=== PATIENT | male | born 1970 | race Caucasian/White ===

== ENCOUNTER 2021-07-30 08:12 | Inpatient (IN) ==
--- NOTE | 2021-05-05 16:45 | Anesthesiology Consultation ---
Date of Service May 05, 2021 Assessment & Plan (1) Encounter for pre-operative examination: - check BSG am DOS. - cardiology office visit and pre-op evaluation 03/18/2021: "...6 month cardiac visit...states he feels good...is to be going for a back surgery but needs cardiac clearance and PCP clearance prior to surgery...refractory HTN and CAD...stenting to Cx...April 2019. Has a totally occluded RCA and moderate distal LAD disease also. He was, for the sake of the chart and reviewers, offered CABG to allow complete revasc but he refused...Most recent stent to circumflex July 2020...BP now most of the time in the 130-140/70's...CAD: finished his series of stents (one in 2019, one in May 2020 and one July 2020) in patient who refused CABG...we will continue the asa/brillinta up to time or [sic] OR and resume once safe after LR...He has not had angina or CHF and ECG is normal...had 6 months of uninterrupted DAPT and wishes to proceed with back surgery. At this point in time the risk is low of stopping the DAPT for surgery and he is willing to accept that risk and proceed with back surgery as an intermediate risk...will need follow up with Dr. Mason in [facility] for ongoing assessment of multivessel stenting and evaluation of non stented side branches..." Case discussed with Dr. Jung who advised nothing further needed prior to surgery regarding patient's cardiac history. Optimization note for medical pre-op evaluation completed as below. - medical pre-op evaluation and clearance needed regarding anemia (H&H 10/25), updated EKG and A1c. Awaiting PCP pre-op evaluation and clearance. - COVID screening: Per electrical design engineer on 05/03/2021: Travel screen negative, no known COVID-19 positive contacts or current COVID-19 related symptoms in past 2 weeks. Patient vaccinated. Surgeon arranging preop COVID testing, scheduled 05/18/2021. Awaiting results. Chart Review Chart Review: Pending: Refer to Additional Notes / Consult section and Patient NOT seen in Pre Admission Testing History Surgery Operation Date: 05/20/21 07:45 Proposed Procedures p L3-L5 Decompression Fusion Spinal Cord Monitoring - Yamil Hull DO Height/Weight Height: 6 ft 2 in Weight: 132.903 kg Allergies Allergy/AdvReac Type Severity Reaction Status Date / Time pneumococcal vaccine Allergy Mild FLU-LIKE Verified 05/03/21 08:25 SYMPTOMS Medications Home Medications Medication Instructions Recorded Confirmed Last Taken aspirin 81 mg tablet,delayed 81 mg PO QAM 05/04/20 05/03/21 Unknown release atorvastatin 40 mg tablet 40 mg PO QAM 05/04/20 05/03/21 Unknown bisoprolol 10 1 tab PO QAM 05/04/20 05/03/21 Unknown mg-hydrochlorothiazide 6.25 mg tablet clonidine HCl 0.1 mg tablet 0.1 mg PO UD 05/04/20 05/03/21 Unknown cyanocobalamin (vitamin B-12) 1,000 mcg PO BID 05/04/20 05/03/21 Unknown 1,000 mcg tablet glimepiride 4 mg tablet 4 mg PO BID 05/04/20 05/03/21 Unknown hydralazine 25 mg tablet 25 mg PO BID 05/04/20 05/03/21 Unknown lisinopril 40 mg tablet 40 mg PO QAM 05/04/20 05/03/21 Unknown lorazepam 0.5 mg tablet 0.5 mg PO HS PRN 05/04/20 05/03/21 Unknown metformin 1,000 mg tablet 1,000 mg PO BID 05/04/20 05/03/21 Unknown minoxidil 2.5 mg tablet 5 mg PO BID 05/04/20 05/03/21 Unknown pantoprazole 40 mg tablet,delayed 40 mg PO QAM 05/04/20 05/03/21 Unknown release spironolactone 25 mg tablet 25 mg PO QAM 05/04/20 05/03/21 Unknown tramadol 50 mg tablet 50 mg PO Q4 PRN 05/04/20 05/03/21 Unknown dapagliflozin 10 mg tablet 10 mg PO QAM 05/03/21 05/03/21 Unknown (Farxi) insulin lispro protamine-lispro 1 unit SUBCUT UD 05/03/21 05/03/21 Unknown 100 unit/mL (75-25) subcutaneous pen (Humalog Mix 75-25 KwikPen) multivitamin 1 tab PO QAM 05/03/21 05/03/21 Unknown ticagrelor 90 mg tablet (Brilinta) 90 mg PO BID 05/03/21 05/03/21 Unknown Past Medical History Medical History Degenerative disc disease Diabetes mellitus, type 2 NIDDM GERD (gastroesophageal reflux disease) History of COVID-19 04/2020>NO SYMPTOMS (TESTED BEFORE 1ST HEART CATH) History of skin cancer REMOVED FROM EYELID Hx of cardiac murmur A CHILD Hyperlipidemia Hypertension Insomnia Obesity Osteoarthritis 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 HERNANDEZ/[facility] History of tooth extraction History of trigger finger bilat thumbs with release Hx of vasectomy Social History Smoking Status: Former smoker tobacco type: cigarettes and smokeless tobacco Smoking cigarettes per day: 30 YEARS AGO Do You Dip or Chew Tobacco: No (QUIT 15 YEARS AGO) Hx Alcohol Use: Yes Alcohol type: beer alcohol intake frequency: holidays/special occasions only substance use type: does not use Lab Results Anesthesia Preop Results Results Anesthesia Widget: WBC 9.17 K/uL (4.8-10.8) 04/13/21 Hgb 8.0 g/dL (14.0-18.0) L 04/13/21 Hct 29.3 % (42-52) L 04/13/21 Plt 377 K/uL (130-400) 04/13/21 Na 136 mmol/L (136-145) 04/13/21 K 4.0 mmol/L (3.5-5.1) 04/13/21 Cl 102 mmol/L (98-107) 04/13/21 CO2 24 mmol/L (21-32) 04/13/21 BUN 22 mg/dl (6-23) 04/13/21 Creat 1.15 mg/dl (0.6-1.4) 04/13/21 Glucose Level 209 mg/dl (70-99(Fasting)) H 04/13/21 PT 10.6 Seconds (9.0-12.0) 04/13/21 PTT 26.7 Seconds (21.0-31.0) 04/13/21 INR 1.0 (0.9-1.1) 04/13/21 Urine Color Yellow 04/13/21 Urine Appearance Clear (Clear) 04/13/21 Urine pH 5.5 (4.5-7.5) 04/13/21 Urine Specific [place] 1.020 (1.000-1.030) 04/13/21 Urine Protein Negative (Negative) 04/13/21 Urine Glucose (UA) 3+ (Negative) H 04/13/21 Urine Ketones Negative (Negative) 04/13/21 Urine Blood Negative (Negative) 04/13/21 Urine Nitrite Negative (Negative) 04/13/21 Urine Bilirubin Negative (Negative) 04/13/21 Urine Urobilinogen Negative (Negative) 04/13/21 Urine Leukocyte Esterase Negative (Negative) 04/13/21 Testing Chest X-Ray Date: 04/13/21 FINDINGS: No lines and tubes are seen. The cardiomediastinal silhouette is normal. The lungs are clear. No evidence of pleural effusion or pneumothorax. IMPRESSION: No acute chest disease. Stress Test Date: 05/05/20 Type: nuclear Based upon the nuclear imaging findings there is inferior wall ischemia. EF 50%. Subsequent cath completed 05/28/2020. Cardiac Catheterization Date: 05/28/20 LM: mild distal disease 15% LAD: proximal 30-40% disease, more distal LAD lesions of 50-60% and 50% Cx: proximal 40% disease, 40-50% disease at take-off of OM1, 90% disease proximal OM, 40% disease inferior branch, 70% disease distal RCA: Known to be 100% occluded, some filling of the RCA system from left to right collaterals Assessment: Multivessel CAD Successful DATA INTEGRITY CONSULTANT/stenting of the OM1 with a ROSAURA, stenosis reduced from 90% to 0% Plan: Maximize medical therapy for secondary prevention Dual antiplatelet therapy for goal of 1 year (or at least 6 mos if urgent surgery)
--- NOTE | 2021-07-16 14:46 | Communication Note ---
Date of Service: July 16, 2021 The patient was noted to have a positive [place] PCR COVID test on 07/15/2021. The patient expressed frustration over his surgery cancellation due to COVID-p ositive status. I was able to review his medical record and found that he has a history significant for coronary artery disease and a history of CABG x3 in April 2020, diabetes, hypertension, hyperlipidemia, obesity, and CVA. He expressed frustration over multiple cancellations in the past. The records were pulled which noted that he was canceled initially for cardiac cath. He was canceled the second time because he required CABG x3, he was canceled a third time due to iron deficiency anemia and need for hematology work-up, and he was canceled today due to COVID-positive status. This case was discussed with Dr. Hull and 2 other anesthesiologist as well as infection control. He is having elective L3-5 lumbar decompression and fusion rather than emergent. No neurosurgical red flags were able to be gleaned from the chart nor per nursing telephone interview. At this time I feel that his risks of acute COVID infection with thrombotic state coupled with his comorbidities outweigh the potential benefit of continuing with elective lumbar decompression and fusion. Dr. Hull in agreement. Subsequently, the patient will be canceled but may return to the OR schedule the week of July 27. Patient has been updated as well as Dr. Hull's office with this information.
[~2021-07-30 08:12] MED LIST: ACETAMINOPHEN 500 MG TAB PO SCH; CeleBREX 200 MG CAP PO SCH; GABAPENTIN 900 MG DOSE PO SCH; LR 15ML/HR IV SCH
[2021-07-30] MEDS ORDERED: ROCURONIUM BROMIDE 10 MG/ML 5 ML VIAL IV ONE ×6 (09:25→11:29)
[2021-07-30] MEDS ORDERED: DEXAMETHASONE SOD INJ 4 MG/ML VIAL ONE (09:25)
[2021-07-30] MEDS ORDERED: PROPOFOL IV EMULSION 10 MG/ML 20 ML VIAL IV ONE (09:25)
[2021-07-30] MEDS ORDERED: LIDOCAINE 2% 2 ML VIAL/AMP(20MG/ML) INFIL ONE (09:25)
[2021-07-30] MEDS ORDERED: fentaNYL citrate 100 MCG/2 ML VIAL ONE (09:26)
[2021-07-30] MEDS ORDERED: MIDAZOLAM HCL 1 MG/ML 2ML VIAL ONE (09:26)
[2021-07-30 09:28] LABS: BUN Creatinine Ratio 17.6 (10-20); Calcium 9.8 mg/dl (8.5-10.1); Creatinine Clr Calc Pharmacy 130.9 ml/min; Est GFR (African American) 111.1 ml/min; Est GFR (Non-African American) 95.9 ml/min; Potassium 4.1 mmol/L (3.5-5.1)
[2021-07-30] MEDS ORDERED: ONDANSETRON INJ 2 MG/ML 2 ML VIAL IV PRN ×2 (09:31→16:58)
[2021-07-30] MEDS ORDERED: HYDROmorphone INJ 1 MG/ML SYRINGE IV PRN ×2 (09:31→16:58)
[2021-07-30] MEDS ORDERED: ATROPINE SULFATE 0.1 MG/ML 10ML SYR IV PRN (09:31)
[2021-07-30] MEDS ORDERED: ePHEDrine sulfate 50 MG/ML AMP IV PRN (09:31)
--- NOTE | 2021-07-30 09:41 | History & Physical Bridge Note ---
Date of Service July 30, 2021 History & Physical Bridge Note I have examined the patient, reviewed the History & Physical and in the interval since the performance of the History & Physical I have noted the following changes of clinical significance: no changes noted
--- NOTE | 2021-07-30 09:42 | History & Physical Report ---
Date of Service July 30, 2021 Assessment & Plan (1) Neurogenic claudication due to lumbar spinal stenosis: Plan: L3 L5 decompression and fusion History of Present Illness Chief Complaint: Back and leg pain Primary Care Provider: Dona Mendez MD This 51-year-old male presents with chronic persistent back and leg pain. Failing course of nonoperative care is here for surgical invention. Allergies Allergy/AdvReac Type Severity Reaction Status Date / Time pneumococcal vaccine Allergy Mild FLU-LIKE Verified 07/30/21 08:38 SYMPTOMS Home Medications Medication Instructions Recorded Confirmed Type aspirin 81 mg tablet,delayed 81 mg PO QAM 05/04/20 07/30/21 History release atorvastatin 40 mg tablet 40 mg PO QAM 05/04/20 07/30/21 History bisoprolol 10 1 tab PO QAM 05/04/20 07/30/21 History mg-hydrochlorothiazide 6.25 mg tablet clonidine HCl 0.1 mg tablet 0.1 mg PO UD 05/04/20 07/30/21 History cyanocobalamin (vitamin B-12) 1,000 mcg PO BID 05/04/20 07/30/21 History 1,000 mcg tablet glimepiride 4 mg tablet 4 mg PO BID 05/04/20 07/30/21 History hydralazine 25 mg tablet 25 mg PO BID 05/04/20 07/30/21 History lisinopril 40 mg tablet 40 mg PO QAM 05/04/20 07/30/21 History lorazepam 0.5 mg tablet 0.5 mg PO HS PRN 05/04/20 07/30/21 History metformin 1,000 mg tablet 1,000 mg PO BID 05/04/20 07/30/21 History minoxidil 2.5 mg tablet 5 mg PO BID 05/04/20 07/30/21 History pantoprazole 40 mg tablet,delayed 40 mg PO QAM 05/04/20 07/30/21 History release spironolactone 25 mg tablet 25 mg PO QAM 05/04/20 07/30/21 History tramadol 50 mg tablet 50 mg PO Q4 PRN 05/04/20 07/30/21 History dapagliflozin 10 mg tablet 10 mg PO QAM 05/03/21 07/30/21 History (Farxiga) insulin lispro protamine-lispro 1 unit SUBCUT UD 05/03/21 07/30/21 History 100 unit/mL (75-25) subcutaneous pen (Humalog Mix 75-25 KwikPen) multivitamin 1 tab PO QAM 05/03/21 07/30/21 History ticagrelor 90 mg tablet (Brilinta) 90 mg PO BID 05/03/21 07/30/21 History ferrous sulfate 325 mg (65 mg 325 mg PO QAM 07/14/21 07/30/21 History iron) tablet (Iron (ferrous sulfate)) Past Med/Surg History Medical History (Updated 07/30/21 @ 09:42 by Yamil Hull DO) Coronary artery disease total occlusion RCA, residual multivessel CAD, pt refused CABG. 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 total occlusion RCA-offered CABG and pt refused. FOLLOWED DR. HERNANDEZ/[facility], Dr. Mason [facility] History of tooth extraction History of trigger finger bilat thumbs with release Hx of vasectomy Family History Other No family history of adverse response to anesthesia Social History Smoking Status: Never smoker Cigarettes Per Day: 30 YEARS AGO; Second Hand Exposure: No; Do You Dip or Chew Tobacco: No; Tobacco Cessation Education Requested by Patient: No Hx Alcohol Use: Yes Alcohol type: beer Hx Substance Use: No Preferred Language: American Communication Ability: Effective Cabinet And Trim Installer Required: No Beliefs That Will Affect Care: None Current Living Situation: Spouse Other Information That Helps Us Care for You: No Feels Safe at Home: Yes Safety Concerns: Feels Safe At This Time Assistive Devices: Denture - Upper and Denture - Lower Assistive Devices Comment: READING GLASSES Physical Exam Physical Exam: Patient is alert and oriented Heart regular rhythm Lungs clear Results & Data Results & Data ([facility]) Vital Signs (Past 12 Hours) Vital Signs Temp Pulse Resp BP Pulse Ox 07/30/21 08:43 36.8 C 74 18 174/93 H 96
[2021-07-30] MEDS ORDERED: ceFAZolin 330 MG/ML 1 GM VIAL ONE (09:58)
[2021-07-30] MEDS ORDERED: BUPIVACAINE/EPINEPHRINE 0.25% 1:200,000 30 ML VIAL ONE (09:59)
[2021-07-30] MEDS ORDERED: FLOSEAL HEMOSTATIC MATRIX 10ML TOP ONE ×2 (11:14)
[2021-07-30] MEDS ORDERED: PHENYLEPHRINE 100MCG/ML 5ML SYR ONE (11:30)
[2021-07-30] MEDS ORDERED: ONDANSETRON INJ 2 MG/ML 2 ML VIAL ONE (11:30)
--- NOTE | 2021-07-30 13:10 | Operative Report ---
Post Operative Report Pre & Post Diagnosis Operation Date: 05/20/21 07:45 <No data on this case meets the specified criteria> Operation Date: 07/30/21 11:05 Pre-Op Diagnosis: Lumbar disc herniation with spinal stenosis and neurogenic claudication Post-Op Diagnosis: Same I identified the patient and participated in the time-out.: Yes Procedure Operation Date: 05/20/21 07:45 <No data on this case meets the specified criteria> Operation Date: 07/30/21 11:05 Actual Procedures #1 lumbar decompression with bilateral medial facetectomies and foraminotomies L2-L3, L3-L4 and L4-L5. #2 posterior spinal fusion L3-L4 L4-L5. #3 placement posterior instrumentation L3-L4 L4-L5. #4 interbody fusion L3-L4 and L4-L5. #5 placement of Spira 15 x 26 mm cage at L3-L4 and L4-5. #6 placement locally harvested morselized autograft in the posterior lateral gutters. #7 placement of I factor bone with V toss in the interbody space and posterior lateral gutters. Surgeon Yamil Hull, DO Senior Hr Business Partner Jean Paul Brown Estimated Blood Loss 800 Findings See Below The patient is 6 foot 2 inches tall weighing over 123 kg with a BMI in excess of 34. Patient's body habitus combined with an EBL of greater than 600 cc created significant technical difficulty adding at least 50% increased operative time. Specimens None Indications This is a 51-year-old male who presents above-mentioned diagnosis after failed extensive course of nonoperative care is here for surgical invention. Description of Procedure Patient was met with identified informed consent obtained. Patient was then taken to the operative suite underwent a patient placed in a prone position on the Mukesh table atop the Maxi frame. All bony prominences well-padded eyes inspected to ensure no external pressure placed upon them. This point the lumbar spine was prepped and draped in normal sterile fashion. Sharp dissection with the assistance of Bovie cautery was performed down to and exposing the lamina and transverse processes of L3-L4-L5 bilaterally. From caudal to cephalad fashion complete laminectomy of L for L3 and partial laminectomy of L2 was performed including bilateral medial facetectomies and foraminotomies addressing severe spinal stenosis. Pedicle screws were then placed at L3 L4-5 bilaterally with assistance of fluoroscopy and the pelvis is santino placed. By way of a transforaminal portion radically discectomy of L4-L5 was performed endplates curetted to subcortically bone and a 15 x 26 mm spiral cage filled with I factor tapped in position. Then proceeded L3-L4 and again by way of a transfemoral approach and right complete discectomy performed endplates. To subcortically bone and a again a 15 x 26 mm spiral cage with I factor tapped in position. The rods were then compressed locked in final position bilaterally. The transverse processes of L3-L4-L5 burred to subcortical bleeding bone. I factor model V toss and locally harvested morselized autograft was placed in the posterior gutters. 15 round AIDEE drain inserted. The incision was then closed with 1 Vicryl in the fascia 2-0 Vicryl subcutaneously and 4 Monocryl for final skin closure. Steri-Strip sterile dressings placed. Patient waken taken PACU stable condition. Please note spinal cord monitoring was utilized at the procedure no changes noted. Lastly Jean Paul Brown was present at the entire surgery and while the patient positioning complex portions of the surgery and fascial closure. I attest to the content of the Intraoperative Record and any orders documented therein. Any exceptions are noted below.
--- NOTE | 2021-07-30 13:29 | Fluoroscopy Report ---
FL lumbar spine 2-3V CLINICAL HISTORY: L3-5 decompression and fusion COMPARISON STUDY: None. FLUOROSCOPY TIME: 24 seconds. FINDINGS: 2 fluoroscopic spot images of the lumbar spine demonstrate posterior decompression and fusi on from L3 through L5 with pedicle screws and rods. The hardware appears intact. Disc spaces are good position. IMPRESSION: Fluoroscopic assistance provided for L3-L5 posterior decompression and fusion ACT 112: Negative or not required by law. Electronically signed by: Enrrique Winslow M.D. 07/30/2021 1:28 PM
[2021-07-30] MEDS ORDERED: INSULIN ASPART PER UNIT ONE (13:51)
[2021-07-30] MEDS: fentaNYL citrate 100 MCG/2 ML VIAL IV PRN ×3 (14:02→14:33)
[2021-07-30] MEDS ORDERED: INSULIN HUMAN REGULAR PER UNIT 5 UNITS in SYRINGE 0 ML IV STA (14:04)
[2021-07-30] MEDS ORDERED: NovoLIN-R INSULIN PER UNIT CHARGE ONE (14:06)
--- NOTE | 2021-07-30 15:52 | Anesthesiology Progress Note ---
Date of Service July 30, 2021 Anesthesia Post Procedure Vital Signs Vital Signs: Temp Pulse Pulse Resp BP Pulse Ox 07/30/21 15:15 73 12 138/67 93 07/30/21 15:05 70 16 127/79 94 07/30/21 14:55 67 13 132/70 93 07/30/21 14:45 64 19 130/74 93 07/30/21 14:35 68 10 L 135/76 93 07/30/21 14:25 70 15 129/76 92 07/30/21 14:15 63 14 134/68 95 07/30/21 14:05 61 13 112/66 92 07/30/21 13:55 68 17 115/70 96 07/30/21 13:45 65 15 112/51 L 92 07/30/21 13:37 97.2 F L 66 18 107/54 L 94 07/30/21 08:43 98.2 F 74 18 174/93 H 96 Pain Intensity Back: Pain Intensity: 4 Transfer of Care Handoff Completed per policy Notes Mental Status: alert / awake / arousable and participated in evaluation Patient Amnestic to Procedure: Yes Nausea / Vomiting: adequately controlled Pain: adequately controlled Airway Patency, RR, SpO2: stable & adequate BP & HR: stable & adequate Hydration State: stable & adequate Anesthetic Complications: no major complications apparent and Pt Satisfied with anesthetic care
[2021-07-30] MEDS ORDERED: NALOXONE HCL 0.4 MG/1 ML VIAL/CARP IV PRN (16:58)
[2021-07-30] MEDS ORDERED: traMADol HCL 50 MG TABLET PO PRN (16:58)
[2021-07-30] MEDS ORDERED: MAGNESIUM HYDROXIDE SUSP 30 ML UDC PO PRN (16:58)
[2021-07-30] MEDS ORDERED: METOCLOPRAMIDE HCL INJ 5 MG/ML 2 ML VIAL IV PRN (16:58)
[2021-07-30] MEDS ORDERED: diphenhydrAMINE Capsule 25 MG CAP PO PRN (16:58)
[2021-07-30] MEDS ORDERED: ONDANSETRON 4 MG OD TAB PO PRN (16:58)
[2021-07-30] MEDS ORDERED: DO NOT ADMINISTER FLU VACCINE PRN (16:58)
[2021-07-30] MEDS ORDERED: bisacodyL 10 MG SUPP PR PRN (16:58)
[2021-07-30] MEDS ORDERED: PHARMACY GLYCEMIC MGMT CONSULT PRN (16:58)
[2021-07-30] MEDS ORDERED: ALUMINUM/MAGNESIUM SUSP 30 ML UDC PO PRN (16:58)
[2021-07-30] MEDS ORDERED: HYDROmorphone INJ 0.5 MG/0.5 ML SYR IV PRN (16:58)
[2021-07-30] MEDS ORDERED: LORazepam 0.5 MG TAB PO PRN (16:58)
[2021-07-30] MEDS ORDERED: FAMOTIDINE 20 MG TAB PO PRN (16:58)
[2021-07-30] MEDS ORDERED: DO NOT ADMINISTER PNEUMOCOCCAL VACCINE PRN (16:58)
[2021-07-30] MEDS ORDERED: SOD PHOSPHATE/SOD BIPHOSPHATE ENEMA 132 ML BTL PR PRN (16:58)
[2021-07-30] MEDS ORDERED: ACETAMINOPHEN 1,000 MG/100 ML VIAL IV PRN (16:58)
[2021-07-30] MEDS ORDERED: LORazepam 2 MG/1 ML VIAL IV PRN (16:58)
[2021-07-30] MEDS ORDERED: PROMETHAZINE HCL 12.5 MG in SODIUM CHLORIDE 0.9% 50 ML IV PRN (16:58)
[2021-07-30] MEDS ORDERED: hydrOXYzine HCl 25 MG TAB PO PRN (16:58)
[2021-07-30] MEDS: SODIUM CHLORIDE 0.9% 1000ML 1,000 ML IV SCH (17:58)
[2021-07-30] MEDS: INSULIN ASPART PER UNIT SC SCH ×2 (18:19→20:42)
--- NOTE | 2021-07-30 20:21 | Hospitalist Consultation ---
Date of Consultation July 30, 2021 Assessment & Plan (1) Neurogenic claudication due to lumbar spinal stenosis: S/p Lumbar decompression and fusion surgery L2-5 today Pain control per Primary Surgical team EBL 800cc Per outpatient records, Hb was 12.7 on 06/09/21 Check CBC and BMP tomorrow (2) CAD (coronary artery disease): (3) History of heart artery stent: S/p stent in May and July 2020 Continue ASA and brilinta Continue atorvastatin Patient to follow up cardiology outpatient (4) Hypertension: Continue home medications Monitor BP (5) Obesity: Lifestyle modification education provided Weight loss (6) Diabetes mellitus, type 2: A1c on 07/06/21 per outpatient records was 6.7 Get pharm for glycemic control considering patient is on IV decadron ISS Patient reports he has follow up with [facility] for DM management outpatient Thank you for the consult. [facility] We will continue to follow patient while inpatient History of Present Illness Reason for Consultation: Post op medical management Requesting Physician: Dr Hull Attending Physician: Yamil Hull, DO History of Present Illness 51-year-old man with history of hypertension, diabetes mellitus type 2, obesity, and deficiency anemia, CAD status post stent in 2020 who had Lumbar decompression and fusion surgery by Dr. Hull today. Patient reported fall and winter 2020 after which she started having chronic persistent low back pain. Reports pain radiates to the right leg. Has been ambulating with a cane. Failed conservative management. Reported that he had a cardiac stress as part of preop work-up and was noted to have CAD and required stents in May and July 2020 at [facility]. Patient seen postop. Reports pain control at this time. Denies any other symptoms at this time. Patient denies smoking or illicit drug use. Drinks alcohol occasionally. Allergies Allergy/AdvReac Type Severity Reaction Status Date / Time pneumococcal vaccine Allergy Mild FLU-LIKE Verified 07/30/21 08:38 SYMPTOMS Home Medications Medication Instructions Recorded Confirmed Type aspirin 81 mg tablet,delayed 81 mg PO QAM 05/04/20 07/30/21 History release atorvastatin 40 mg tablet 40 mg PO QAM 05/04/20 07/30/21 History bisoprolol 10 1 tab PO QAM 05/04/20 07/30/21 History mg-hydrochlorothiazide 6.25 mg tablet clonidine HCl 0.1 mg tablet 0.1 mg PO UD 05/04/20 07/30/21 History cyanocobalamin (vitamin B-12) 1,000 mcg PO BID 05/04/20 07/30/21 History 1,000 mcg tablet glimepiride 4 mg tablet 4 mg PO BID 05/04/20 07/30/21 History hydralazine 25 mg tablet 25 mg PO BID 05/04/20 07/30/21 History lisinopril 40 mg tablet 40 mg PO QAM 05/04/20 07/30/21 History lorazepam 0.5 mg tablet 0.5 mg PO HS PRN 05/04/20 07/30/21 History metformin 1,000 mg tablet 1,000 mg PO BID 05/04/20 07/30/21 History minoxidil 2.5 mg tablet 5 mg PO BID 05/04/20 07/30/21 History pantoprazole 40 mg tablet,delayed 40 mg PO QAM 05/04/20 07/30/21 History release spironolactone 25 mg tablet 25 mg PO QAM 05/04/20 07/30/21 History tramadol 50 mg tablet 50 mg PO Q4 PRN 05/04/20 07/30/21 History dapagliflozin 10 mg tablet 10 mg PO QAM 05/03/21 07/30/21 History (Farxiga) insulin lispro protamine-lispro 1 unit SUBCUT UD 05/03/21 07/30/21 History 100 unit/mL (75-25) subcutaneous pen (Humalog Mix 75-25 KwikPen) multivitamin 1 tab PO QAM 05/03/21 07/30/21 History ticagrelor 90 mg tablet (Brilinta) 90 mg PO BID 05/03/21 07/30/21 History ferrous sulfate 325 mg (65 mg 325 mg PO QAM 07/14/21 07/30/21 History iron) tablet (Iron (ferrous sulfate)) Patient History Medical History (Updated 07/30/21 @ 20:14 by Barbara Irving MD) Coronary artery disease total occlusion RCA, residual multivessel CAD, pt refused CABG. 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 total occlusion RCA-offered CABG and pt refused. FOLLOWED DR. HERNANDEZ/[facility], Dr. Mason [facility] History of tooth extraction History of trigger finger bilat thumbs with release Hx of vasectomy Family History Other No family history of adverse response to anesthesia Social History Smoking Status: Never smoker Cigarettes Per Day: 30 YEARS AGO; Second Hand Exposure: No; Do You Dip or Chew Tobacco: No; Tobacco Cessation Education Requested by Patient: No Hx Alcohol Use: Yes Alcohol type: beer Hx Substance Use: No Preferred Language: Yi Communication Ability: Effective Belt Splicer Required: No Beliefs That Will Affect Care: None Current Living Situation: Spouse Other Information That Helps Us Care for You: No Feels Safe at Home: Yes Safety Concerns: Feels Safe At This Time Assistive Devices: Denture - Upper and Denture - Lower Assistive Devices Comment: READING GLASSES Review of Systems Constitutional: no fever, no chills and no fatigue Eyes: no problem reported Ear, Nose, Mouth, Throat: no problem reported Respiratory: no cough, no dyspnea and no dyspnea on exertion Cardiovascular: no chest pain, no dyspnea, no palpitations and no lightheadedness Gastrointestinal: no abdominal pain, no nausea, no vomiting and no diarrhea/loose stools Genitourinary: no dysuria, no difficulty urinating or no urinary frequency Musculoskeletal: + back pain Neurologic: no localized weakness and no headache(s) Psychiatric: no depression and no anxiety Physical Exam Constitutional: + well hydrated and + obese; no acute distress Eyes: PERRL, conjunctivae normal, anicteric sclerae ENMT: external ear and nose normal, oropharynx normal Respiratory: normal respiratory effort, lungs clear to auscultation Cardiovascular: Rate/Rhythm: regular rate and regular rhythm S1-S2 Gastrointestinal (Abdomen): normal bowel sounds, soft, nontender, no hepatosplenomegaly Musculoskeletal: No pedal edema Neurologic: PERRL, EOMI, accommodation nl, no face palsy, no dysarthria Psychiatric: A+Ox3, euthymic affect Genitourinary: Malloy in situ Results & Data Results & Data ([facility]) Vital Signs (Past 12 Hours) Vital Signs Temp Pulse Pulse Resp BP Pulse Ox 07/30/21 19:15 36.8 C 80 18 151/85 H 90 07/30/21 17:13 37 C 79 18 140/72 93 07/30/21 16:30 36.3 C L 81 16 141/66 H 96 07/30/21 16:15 82 18 128/66 92 07/30/21 16:00 76 16 144/89 H 97 07/30/21 15:45 74 16 131/76 94 07/30/21 15:30 78 19 145/72 H 96 07/30/21 15:15 36.6 C 73 12 138/67 93 07/30/21 15:05 70 16 127/79 94 07/30/21 14:55 67 13 132/70 93 07/30/21 14:45 64 19 130/74 93 07/30/21 14:35 68 10 L 135/76 93 07/30/21 14:25 70 15 129/76 92 07/30/21 14:15 63 14 134/68 95 07/30/21 14:05 61 13 112/66 92 07/30/21 13:55 68 17 115/70 96 07/30/21 13:45 65 15 112/51 L 92 07/30/21 13:37 36.2 C L 66 18 107/54 L 94 07/30/21 08:43 36.8 C 74 18 174/93 H 96 Laboratory Results Abnormal lab results 07/30/21 07/30/21 07/30/21 Range/Units 08:43 08:43 08:54 Glucose 201 H (70-99(Fasting)) mg/dl POC Glucose 190 H (70-99) mg/dl Crossmatch See Detail 07/30/21 07/30/21 07/30/21 Range/Units 13:44 14:56 17:32 Glucose (70-99(Fasting)) mg/dl POC Glucose 311 H* 315 H* 265 H (70-99) mg/dl Crossmatch
[2021-07-30] MEDS: ceFAZolin 2000MG 2,000 MG/15 ML SYR IV SCH (20:34)
[2021-07-30] MEDS: DOCUSATE SODIUM/SENNA 50/8.6MG TAB PO SCH (20:34)
[2021-07-30] MEDS: hydrALAZINE HCL 25 MG TAB PO SCH (20:35)
[2021-07-30] MEDS: minoxidiL 2.5 MG TAB PO SCH (20:35)
[2021-07-30] MEDS: CYANOCOBALAMIN (B-12) 500 MCG TABLET PO SCH (20:36)
[2021-07-30] MEDS: TICAGRELOR 90 MG TAB PO SCH (20:36)
[2021-07-30] MEDS: cloNIDine HCL 0.1 MG TAB PO SCH (20:37)
[2021-07-30] MEDS ORDERED: GLIMEPIRIDE 2 MG TAB PO SCH (21:00)
[2021-07-30] MEDS ORDERED: INSULIN GLARGINE SOLOSTAR 100 UNITS/ML 3 ML PEN SC ONE (21:30)
[2021-07-31] MEDS: INSULIN ASPART PER UNIT SC SCH ×6 (00:30→21:14)
[2021-07-31] MEDS: ACETAMINOPHEN 500 MG TAB PO PRN ×2 (00:31→06:07)
[2021-07-31] MEDS: SODIUM CHLORIDE 0.9% 1000ML 1,000 ML IV SCH (00:34)
[2021-07-31] MEDS: ceFAZolin 2000MG 2,000 MG/15 ML SYR IV SCH (04:39)
[2021-07-31] MEDS: POLYETHYLENE (MIRALAX) 17 GM PACK PO SCH ×4 (04:40→23:54)
[2021-07-31 06:20] LABS: Basophils # (auto) 0.02 K/uL (0-0.2); Basophils % (auto) 0.2 %; Eosinophils # (auto) 0.06 K/uL (0-0.5); Eosinophils % (auto) 0.6 %; Hematocrit (blood only) 31.2 % (42-52); Hemoglobin 10.5 g/dL (14.0-18.0); Immature Granulocytes # (auto) 0.04 K/uL (0.00-0.02); Immature Granulocytes % (auto) 0.4 %; Lymphocytes # (auto) 1.01 K/uL (1.2-3.4); Lymphocytes % (auto) 9.4 %; Mean Corpuscular Hemoglobin 28.5 pg (25-34); Mean Corpuscular Hgb Conc 33.7 g/dL (32-36); Mean Corpuscular Volume 84.8 fL (80-100); Mean Platelet Volume 9.5 fL (7.4-10.4); Monocytes # (auto) 1.01 K/uL (0.11-0.59); Monocytes % (auto) 9.4 %; Platelet Count 203 K/uL (130-400); RDW Coefficient of Variation 19.4 % (11.5-14.5); RDW Standard Deviation 60.9 fL (36.4-46.3); Red Blood Count 3.68 M/uL (4.7-6.1); White Blood Count 10.74 K/uL (4.8-10.8)
[2021-07-31 06:47] LABS: Calcium 8.3 mg/dl (8.5-10.1); Creatinine Clr Calc Pharmacy 119.1 ml/min; Est GFR (African American) 99.2 ml/min; Est GFR (Non-African American) 85.5 ml/min; Potassium 3.9 mmol/L (3.5-5.1)
[2021-07-31] MEDS: INSULIN GLARGINE SOLOSTAR 100 UNITS/ML 3 ML PEN SC SCH ×2 (08:42→21:15)
[2021-07-31] MEDS: dexAMETHasone 6 MG in SYRINGE 0 ML IV SCH (08:44)
[2021-07-31] MEDS: MULTIVITAMIN TAB PO SCH (08:45)
[2021-07-31] MEDS: hydrALAZINE HCL 25 MG TAB PO SCH ×2 (08:45→20:58)
[2021-07-31] MEDS: SPIRONOLACTONE 25 MG TAB PO SCH (08:45)
[2021-07-31] MEDS: minoxidiL 2.5 MG TAB PO SCH ×2 (08:45→20:56)
[2021-07-31] MEDS: CYANOCOBALAMIN (B-12) 500 MCG TABLET PO SCH ×2 (08:45→20:57)
[2021-07-31] MEDS: TICAGRELOR 90 MG TAB PO SCH ×2 (08:45→20:57)
[2021-07-31] MEDS: ATORVASTATIN 40 MG TAB PO SCH (08:45)
[2021-07-31] MEDS: ASPIRIN 81 MG ECTAB PO SCH (08:46)
[2021-07-31] MEDS: lisinopril 40 MG TAB PO SCH (08:46)
[2021-07-31] MEDS: PANTOprazole 40 MG TAB PO SCH (08:46)
[2021-07-31] MEDS: hydroCHLOROthiazide 25 MG TAB PO SCH (08:47)
[2021-07-31] MEDS: BISOPROLOL FUMARATE 5 MG TAB PO SCH (08:47)
[2021-07-31] MEDS: cloNIDine HCL 0.1 MG TAB PO SCH ×2 (08:48→20:58)
[2021-07-31] MEDS: FERROUS SULFATE 325 MG TAB PO SCH (08:48)
[2021-07-31] MEDS ORDERED: BISOPROLOL HYDROCHLOROTHIAZIDE PO SCH (09:00)
--- NOTE | 2021-07-31 11:00 | Orthopedic Progress Note ---
Date of Service July 31, 2021 Assessment & Plan (1) Neurogenic claudication due to lumbar spinal stenosis: Plan: At this time we will continue physical therapy monitor his AIDEE output hopefully discharge home Monday. Admission and Anticipated Discharge Date Admission Date: July 30, 2021 Subjective Patient's back pain is controlled leg symptoms improved Physical Exam Physical Exam: Patient is good strength testing. Appears comfortable. Results & Data ([facility]) Vital Signs (Past 12 Hours) Vital Signs Temp Pulse Resp BP Pulse Ox 07/31/21 07:32 36.7 C 77 18 135/71 94 07/31/21 03:57 36.7 C 77 16 151/75 H 95 07/31/21 00:14 36.8 C 73 16 139/71 95
--- NOTE | 2021-07-31 14:10 | Pharmacy Report ---
Pharmacy Glycemic Short Note 2 - Date of Service July 31, 2021 - Glycemic Short BSG Results (Last 24 hours): 07/30/21 07/30/21 07/30/21 14:56 17:32 20:32 Glucose POC Glucose 315 H* 265 H 241 H 07/31/21 07/31/21 07/31/21 00:18 03:44 05:20 Glucose 188 H POC Glucose 157 H 189 H 07/31/21 07/31/21 08:13 12:17 Glucose POC Glucose 197 H 240 H OUTPATIENT ANTIDIABETIC REGIMEN: * Farxiga * Glimepiride * Humalog Mix SQ 60 units QAM, 120 units SQ QPM ASSESSMENT: * 51 y/o M admitted for spinal fusion/ decompression surgery yesterday. Today is POD #1. Patient with Type 2 diabetes managed at home on oral meds and SQ Humalog insulin BID. * Holding oral anti-diabetic meds on admission. Basal + bolus insulins started yesterday. * Patient received 60 units of SQ basal insulin last night (30 units were taken prior to admission). * Basal insulin dose increased to 40 units this AM, continued 60 units at HS. * Patient received IV Dexamethasone 8 mg in OR yesterday. BSGs were above 200 mg/dl yesterday due to steroid induced hyperglycemia. * IV Dex 6 mg QAM continued. AM dose of basal insulin increased to 40 units today. Will re-assess need for more basal insulin tomorrow. * Novolog parameters were tightened to greater than stress of 3. Continued the same today. PLAN FOR INPATIENT GLYCEMIC CONTROL: * Hold outpatient oral diabetes medications * Basal insulin * Lantus 40 units SQ QAM; 60 units SQ QPM * Bolus insulin * NovoLog per scale ACHS or Q6hrs while NPO * Goal Range: Low 110 mg/dL - High 140 mg/dL * Correction Factor: 8 mg/dL/unit * Nutritional / Prandial insulin per carb ratio of 1 unit per 4 grams CHO consumed
[2021-07-31] MEDS: oxyCODONE HCL IR 5 MG TAB (IMMEDIATE RELEASE) PO PRN ×2 (14:35→16:48)
--- NOTE | 2021-07-31 20:49 | Hospitalist Progress Note ---
Date of Service July 31, 2021 Assessment & Plan (1) Neurogenic claudication due to lumbar spinal stenosis: Plan: S/p Lumbar decompression and fusion surgery L2-[address] Hull yesterday No Postop complication Continue incentive spirometry Continue pain control Hgb 10.5 today PT/OT eval (2) CAD (coronary artery disease): (3) History of heart artery stent: Plan: S/p stent in May and July 2020 Continue ASA and brilinta Continue atorvastatin Denies any chest pain (4) Hypertension: Plan: BP stable Continue home medications (5) Obesity: Plan: Lifestyle modification education provided Weight loss (6) Diabetes mellitus, type 2: Plan: A1c on 07/06/21 per outpatient records was 6.7 Pharmacy on board for glycemic management Continue monitor BS Thank you for the consult. Please feel free to reach out to [facility] Hospitalist team. We will continue to follow patient while inpatient Admission and Anticipated Discharge Date Admission Date: July 30, 2021 Subjective Pt was seen and examined for postop follow Lying in bed with no distress Denies any chest pain, palpitation, dizziness and SOB Review of Systems Review of Systems: All systems reviewed & are unremarkable except as noted in Subjective Physical Exam Physical Exam: General- No acute distress Head- atraumatic Eyes- PERRL, EOMI, ENT- oropharynx clear Neck- supple, no JVD Lungs- clear to auscultation Heart- regular rhythm; no murmur Abdomen- normal bowel sounds, soft, nontender Extremities- no calf tenderness Neuro- alert, oriented x 3; PERRL, EOMI; no facial palsy; no dysarthria Skin- warm & dry Results & Data Results & Data ([place]) Vital Signs (Past 12 Hours) Vital Signs Temp Pulse Resp BP Pulse Ox 07/31/21 15:21 36.9 C 75 16 137/67 94 07/31/21 11:27 36.9 C 76 18 121/66 93
[2021-07-31] MEDS: DOCUSATE SODIUM/SENNA 50/8.6MG TAB PO SCH (20:57)
[2021-08-01] MEDS: oxyCODONE HCL IR 5 MG TAB (IMMEDIATE RELEASE) PO PRN ×5 (00:19→23:56)
[2021-08-01] MEDS: POLYETHYLENE (MIRALAX) 17 GM PACK PO SCH ×4 (05:56→23:57)
[2021-08-01] MEDS: dexAMETHasone 6 MG in SYRINGE 0 ML IV SCH (07:58)
[2021-08-01] MEDS: SPIRONOLACTONE 25 MG TAB PO SCH (07:59)
[2021-08-01] MEDS: PANTOprazole 40 MG TAB PO SCH (07:59)
[2021-08-01] MEDS: cloNIDine HCL 0.1 MG TAB PO SCH ×2 (07:59→21:05)
[2021-08-01] MEDS: minoxidiL 2.5 MG TAB PO SCH ×2 (07:59→21:03)
[2021-08-01] MEDS: TICAGRELOR 90 MG TAB PO SCH ×2 (07:59→21:04)
[2021-08-01] MEDS: lisinopril 40 MG TAB PO SCH (08:00)
[2021-08-01] MEDS: MULTIVITAMIN TAB PO SCH (08:00)
[2021-08-01] MEDS: ATORVASTATIN 40 MG TAB PO SCH (08:00)
[2021-08-01] MEDS: FERROUS SULFATE 325 MG TAB PO SCH (08:00)
[2021-08-01] MEDS: hydroCHLOROthiazide 25 MG TAB PO SCH (08:00)
[2021-08-01] MEDS: ASPIRIN 81 MG ECTAB PO SCH (08:00)
[2021-08-01] MEDS: hydrALAZINE HCL 25 MG TAB PO SCH ×2 (08:01→21:06)
[2021-08-01] MEDS: BISOPROLOL FUMARATE 5 MG TAB PO SCH (08:01)
[2021-08-01] MEDS: CYANOCOBALAMIN (B-12) 500 MCG TABLET PO SCH ×2 (08:01→21:05)
[2021-08-01] MEDS: INSULIN GLARGINE SOLOSTAR 100 UNITS/ML 3 ML PEN SC SCH ×2 (08:11→21:06)
[2021-08-01] MEDS: INSULIN ASPART PER UNIT SC SCH ×4 (08:13→20:42)
--- NOTE | 2021-08-01 10:10 | Orthopedic Progress Note ---
Date of Service August 01, 2021 Assessment & Plan (1) Neurogenic claudication due to lumbar spinal stenosis: Plan: At this time continue physical therapy monitor his AIDEE output anticipate discharge home tomorrow. Admission and Anticipated Discharge Date Admission Date: July 30, 2021 Subjective Back pain controlled leg pain markedly improved Physical Exam Physical Exam: Patient is in the chair at the bedside. Is good strength testing. Appears comfortable. Results & Data ([facility]) Vital Signs (Past 12 Hours) Vital Signs Temp Pulse Pulse Resp BP Pulse Ox 08/01/21 08:13 36.7 C 73 16 144/68 H 96 08/01/21 00:01 36.8 C 74 16 114/68 93
[2021-08-01] MEDS: DOCUSATE SODIUM/SENNA 50/8.6MG TAB PO SCH (21:05)
--- NOTE | 2021-08-01 21:43 | Hospitalist Progress Note ---
Date of Service August 01, 2021 Assessment & Plan (1) Neurogenic claudication due to lumbar spinal stenosis: Plan: S/p day#2 Lumbar decompression and fusion surgery L2-[address] Hull yesterday No Postop complication Continue incentive spirometry Continue pain control Hgb 10.5 PT/OT eval (2) CAD (coronary artery disease): (3) History of heart artery stent: Plan: S/p stent in May and July 2020 Continue ASA and brilinta Continue atorvastatin Denies any chest pain (4) Hypertension: Plan: BP stable Continue home medications (5) Obesity: Plan: Lifestyle modification education provided Counseling on weight loss (6) Diabetes mellitus, type 2: Plan: A1c 6.7 on 07/06/21 per outpatient records Pharmacy on board for glycemic management Continue monitor BS Thank you for the consult. Please feel free to reach out to [facility] Hospitalist team. We will continue to follow patient while inpatient Admission and Anticipated Discharge Date Admission Date: July 30, 2021 Subjective Pt was seen and examined for postop follow Sitting in chair with no distress with no distress with present Denies any chest pain, palpitation, dizziness and SOB Review of Systems Review of Systems: All systems reviewed & are unremarkable except as noted in Subjective Physical Exam Physical Exam: General- No acute distress Head- atraumatic Eyes- PERRL, EOMI, ENT- oropharynx clear Neck- supple, no JVD Lungs- clear to auscultation Heart- regular rhythm; no murmur Abdomen- normal bowel sounds, soft, nontender Extremities- no calf tenderness Neuro- alert, oriented x 3; PERRL, EOMI; no facial palsy; no dysarthria Skin- warm & dry Results & Data Results & Data ([facility]) Vital Signs (Past 12 Hours) Vital Signs Temp Pulse Resp BP Pulse Ox 08/01/21 15:30 36.8 C 78 16 110/58 L 96
[2021-08-02] MEDS: oxyCODONE HCL IR 5 MG TAB (IMMEDIATE RELEASE) PO PRN (05:45)
[2021-08-02] MEDS: POLYETHYLENE (MIRALAX) 17 GM PACK PO SCH ×2 (05:46→12:36)
[2021-08-02 06:49] LABS: Estimated Average Glucose 160 mg/dl; Hemoglobin A1C 7.2 % (4.5-5.6)
[2021-08-02] MEDS: lisinopril 40 MG TAB PO SCH (08:44)
[2021-08-02] MEDS: cloNIDine HCL 0.1 MG TAB PO SCH (08:44)
[2021-08-02] MEDS: dexAMETHasone 6 MG in SYRINGE 0 ML IV SCH (08:44)
[2021-08-02] MEDS: hydrALAZINE HCL 25 MG TAB PO SCH (08:44)
[2021-08-02] MEDS: ATORVASTATIN 40 MG TAB PO SCH (08:44)
[2021-08-02] MEDS: MULTIVITAMIN TAB PO SCH (08:44)
[2021-08-02] MEDS: SPIRONOLACTONE 25 MG TAB PO SCH (08:45)
[2021-08-02] MEDS: ASPIRIN 81 MG ECTAB PO SCH (08:45)
[2021-08-02] MEDS: PANTOprazole 40 MG TAB PO SCH (08:45)
[2021-08-02] MEDS: BISOPROLOL FUMARATE 5 MG TAB PO SCH (08:45)
[2021-08-02] MEDS: hydroCHLOROthiazide 25 MG TAB PO SCH (08:45)
[2021-08-02] MEDS: FERROUS SULFATE 325 MG TAB PO SCH (08:45)
[2021-08-02] MEDS: CYANOCOBALAMIN (B-12) 500 MCG TABLET PO SCH (08:45)
[2021-08-02] MEDS: minoxidiL 2.5 MG TAB PO SCH (08:46)
[2021-08-02] MEDS: TICAGRELOR 90 MG TAB PO SCH (08:46)
[2021-08-02] MEDS: INSULIN ASPART PER UNIT SC SCH ×2 (08:50→12:41)
[2021-08-02] MEDS: INSULIN GLARGINE SOLOSTAR 100 UNITS/ML 3 ML PEN SC SCH (09:42)
--- NOTE | 2021-08-02 11:51 | Hospitalist Progress Note ---
Date of Service August 02, 2021 Assessment & Plan (1) Neurogenic claudication due to lumbar spinal stenosis: Plan: S/p day#3 Lumbar decompression and fusion surgery L2-[address] Hull yesterday No Postop complication Continue incentive spirometry Continue pain control Hgb 10.5 PT/OT as per ortho Fall precaution (2) CAD (coronary artery disease): (3) History of heart artery stent: Plan: S/p stent in May and July 2020 Continue ASA and brilinta Continue atorvastatin Denies any chest pain (4) Hypertension: Plan: BP stable Continue home medications (5) Obesity: Plan: Lifestyle modification education provided Counseling on weight loss (6) Diabetes mellitus, type 2: Plan: A1c 6.7 on 07/06/21 per outpatient records Pharmacy on board for glycemic management Continue monitor BS Thank you for the consult. Please feel free to reach out to [facility] Hospitalist team. We will continue to follow patient while inpatient Admission and Anticipated Discharge Date Admission Date: July 30, 2021 Subjective Pt was seen and examined for postop follow Sitting in chair with no acute distress He said that he feels fine Denies any chest pain, palpitation, dizziness and SOB Review of Systems Review of Systems: All systems reviewed & are unremarkable except as noted in Subjective Physical Exam Physical Exam: General- No acute distress Head- atraumatic Eyes- PERRL, EOMI, ENT- oropharynx clear Neck- supple, no JVD Lungs- clear to auscultation Heart- regular rhythm; no murmur Abdomen- normal bowel sounds, soft, nontender Extremities- no calf tenderness Neuro- alert, oriented x 3; PERRL, EOMI; no facial palsy; no dysarthria Skin- warm & dry Results & Data Results & Data ([facility]) Vital Signs (Past 12 Hours) Vital Signs Temp Pulse Resp BP Pulse Ox 08/02/21 08:10 36.6 C 67 16 115/62 95
--- NOTE | 2021-08-02 12:07 | Discharge Summary ---
Date of Service August 02, 2021 Admission HPI Per Admitting Provider This 51-year-old male presents with chronic persistent back and leg pain. Failing course of nonoperative care is here for surgical invention. Principal Diagnosis Lumbar spinal stenosis with neurogenic claudication Discharge Data Allergies Allergy/AdvReac Type Severity Reaction Status Date / Time pneumococcal vaccine Allergy Mild FLU-LIKE Verified 07/30/21 08:38 SYMPTOMS Consultations 07/30/21 16:58 Consult Hospitalist Routine Procedures Performed Operation Date: 05/20/21 07:45 <No data on this case meets the specified criteria> Operation Date: 07/30/21 11:05 Actual Procedures p L3-L5 Decompression and Fusion, Spinal Cord Monitoring(Not Applicable) - Yamil Hull DO Ordered Studies 07/30/21 11:05 FL lumbar spine 2-3V Routine Hospital Course (1) Neurogenic claudication due to lumbar spinal stenosis: Patient went lumbar decompression fusion tolerated Zosyn to orthopedic for postoperative. Postop day #1 he was up and ambulating Derrek postop day #2 postop 3 pain was well controlled. AIDEE drain decreased probably. Excellent strength testing. Subsequently discharge home. Discharge orders instructions found the chart on further review. Total Time Total Time Spent Total Time Spent (In Minutes): 20 minutes Discharge Plan Discharge Items Patient Disposition: Home - Self-Care Reason For Visit: Intervertebral Disc Disorders Discharge Diagnosis: Lumbar spinal stenosis with neurogenic claudication Activity: As commented below Non-emergency contact: Primary Care Provider Call non-emergency contact if: you have any medication questions Follow-up/Referrals: Dona Mendez MD [Primary Care Provider] - Diet: Regular Addtl Attending Provider Instructions: ACTIVITY RECOMMENDATIONS: SELF CARE INSTRUCTIONS AFTER THORACIC/LUMBAR FUSIONS 1. You may walk to your tolerance. It is good exercise for your legs and back. Expect some back and intermittent leg aches and pains. 2. You may perform "counter-top" level activities (make a sandwich, sarah with a project, etc.). 3. No bending or lifting of more than 10 pounds or back twisting of any nature (roll like a log when turning in bed). 4. You may ride in a car for 20-30 minutes at a time. No driving until after your first visit with your doctor. 5. Frequent changes of position and restricting sitting to 30 minutes at a time will help limit the amount of back spasms and stiffness you may experience. 6. You may discontinue the use of ambulatory aids (cane, crutches, etc.) once your strength and confidence allow. 7. You may cigar machine feeder the shower and let water strike your incision when you arrive home at least once daily. Do not take a tub bath, sit in a hot tub or go into a swimming pool until after your first recheck in the office. SPECIAL CARE INSTRUCTIONS: VERY IMPORTANT TO READ AND REVIEW A. Your surgical incision has been closed with a cosmetic suture under the skin that will dissolve in about 6 weeks. In 14 days, you can use a pair of clean scissors and cut the suture that is left outside of the skin at the ends of your incision. 1. The small skin tapes can be removed 7 days after surgery if they have not fallen off by that point. 2. You may keep the wound open to air as much as possible to promote healing after post-op day number 5 unless told otherwise by your doctor. 3. If you think the wound looks like it is becoming infected (redness or worsening drainage) and/or you are experiencing fever, chill or worsening back pain and muscle spasms, contact the office so that we may evaluate you as soon as possible. B. Complications are uncommon, but please contact us if you have any signs or symptoms of: 1. wound infection (fever higher than 102.5 degrees F, redness, separation of wound, drainage, or increasing pain from the incision) 2. blood clots in legs (pain, swelling, redness and warmth in legs) 3. urinary tract infection (fever higher than 102.5 degrees F, burning upon urination or increased frequency of urination) 4. nerve problems (inability to walk on your toes or heels, numbness, loss of bowel or bladder control) 5. any other symptoms that concern you C. Please call the office at if you have any concerns or questions about your operation or recovery. D. No smoking! Smoking drastically decreases the chance of a solid fusion. E. Do not take any anti-inflammatory medications (Indocin, Advil, Motrin, Aspirin, Naprosyn, etc.) as these may inhibit the chance of a solid fusion. Tylenol is okay to take for pain. MANAGING PAIN AFTER SPINAL SURGERY 1. Narcotic medication is intended for short-term use and will be provided for surgical pain. Surgical pain usually lasts for a period of 4-6 weeks. Narcotic medication includes Percocet, Vicodin, Darvocet, Tylenol #3 or Lortab. 2. Longer-term pain is more appropriately treated with non-narcotic medication such as Tylenol ES. 3. Muscle spasm is not appropriately treated with narcotics. Muscle relaxers such as Soma, Flexeril or Skelaxin can be used along with Tylenol ES. 4. Remember that we all live with some "aches and pains". This is not unusual or uncommon after an injury or as we get older. a. Back pain is expected and may include muscle spasms for 4 to 6 weeks after surgery. The pain should gradually improve. If the pain worsens for no apparent reason, please contact the office. b. Intermittent leg pain may also be experienced and should not be concerned about unless it worsens for no apparent reason. If so, please contact the office. 5. We will provide appropriate medication within the normal guidelines of their prescribed use. We will also be very cautious and aware of potential abuse and extended duration of patients' medication needs. a. Pain medications are for your comfort and to assist with sleep and rest so that the tissue can heal. They are not provided in order to return to normal activity and should not be used through the day. To do so or worsening pain at night can result from ongoing tissue damage and development of tolerance to the prescribed medicine. 6. Please allow 2-3 days to process refills. Prescriptions will not be mailed but must be picked up at the office. FOLLOW UP VISIT: Keep your scheduled follow-up appointment. Any questions, please call the office at . Pending Studies at Discharge: No Stand-Alone Forms: My [facility] [employer], Smoking Cessation Medications and DC Order Prescriptions: New oxycodone 5 mg tablet 5 mg PO Q6H PRN (Reason: pain, severe) Qty: 30 RF: 0 tramadol 50 mg tablet 50 mg PO Q6H PRN (Reason: pain, moderate) Qty: 30 RF: 0 Continued multivitamin Tablet 1 tab PO QAM RF: 0 insulin lispro protamin-lispro [Humalog Mix 75-25 KwikPen] 100 unit/mL (75-25) Insulin Pen 1 unit SUBCUT UD RF: 0 Brilinta 90 mg Tablet 90 mg PO BID RF: 0 Farxiga 10 mg Tablet 10 mg PO QAM RF: 0 ferrous sulfate [Iron (ferrous sulfate)] 325 mg (65 mg iron) Tablet 325 mg PO QAM RF: 0 atorvastatin 40 mg Tablet 40 mg PO QAM RF: 0 clonidine HCl 0.1 mg Tablet 0.1 mg PO UD RF: 0 bisoprolol-hydrochlorothiazide 10-6.25 mg Tablet 1 tab PO QAM RF: 0 cyanocobalamin (vitamin B-12) 1,000 mcg Tablet 1,000 mcg PO BID RF: 0 hydralazine 25 mg Tablet 25 mg PO BID RF: 0 minoxidil 2.5 mg Tablet 5 mg PO BID RF: 0 aspirin 81 mg Tablet,Delayed Release (Dr/Ec) 81 mg PO QAM RF: 0 spironolactone 25 mg Tablet 25 mg PO QAM RF: 0 lorazepam 0.5 mg Tablet 0.5 mg PO HS PRN (Reason: Anxiety) RF: 0 pantoprazole 40 mg Tablet,Delayed Release (Dr/Ec) 40 mg PO QAM RF: 0 metformin 1,000 mg Tablet 1,000 mg PO BID RF: 0 glimepiride 4 mg Tablet 4 mg PO BID RF: 0 lisinopril 40 mg Tablet 40 mg PO QAM RF: 0 tramadol 50 mg Tablet 50 mg PO Q4 PRN (Reason: Pain) RF: 0 Discharge Orders: Discharge Order (Routine); Ordered 08/02/21 Ordered By: Yamil Meneses/Other Patient Handouts: Nutrition for Wound Healing, Managing Type 2 Diabetes Admission Data Admit Date/Time: 07/30/21 13:14 Attending Provider: Yamil Hull Admit Provider: Yamil Hull Primary Care Provider: Dona Mendez Other Providers: Azra Cardoso ; Seth Baker
[2021-08-02] MEDS ORDERED: INSULIN GLARGINE SOLOSTAR 100 UNITS/ML 3 ML PEN SC SCH (21:00)
== END 2021-08-02 14:52 | disposition home or self-care (01) | DRG 455 ==
LOC: ASU 08:12 → PACUINP 13:14 → 3E 16:57

== ENCOUNTER 2022-05-27 05:53 | Inpatient (IN) ==
--- NOTE | 2022-04-27 10:38 | PAT Medication Instructions ---
Medication Instructions Date of Service April 27, 2022 Home Medications aspirin 81 mg tablet,delayed release 81 mg PO QAM atorvastatin 40 mg tablet 40 mg PO QAM bisoprolol 10 mg-hydrochlorothiazide 6.25 mg tablet 1 tab PO QAM clonidine HCl 0.1 mg tablet 0.1 mg PO UD cyanocobalamin (vitamin B-12) 1,000 mcg tablet 1,000 mcg PO BID hydralazine 25 mg tablet 25 mg PO BID lisinopril 40 mg tablet 40 mg PO QAM lorazepam 0.5 mg tablet 0.5 mg PO HS PRN Anxiety metformin 1,000 mg tablet 1,000 mg PO BID minoxidil 2.5 mg tablet 5 mg PO BID pantoprazole 40 mg tablet,delayed release 40 mg PO QAM spironolactone 25 mg tablet 25 mg PO QAM dapagliflozin 10 mg tablet (Farxiga) 10 mg PO QAM insulin lispro protamine-lispro 100 unit/mL (75-25) subcutaneous pen (Humalog Mix 75-25 KwikPen) 1 unit subcut UD multivitamin 1 tab PO QAM ferrous sulfate 325 mg (65 mg iron) tablet (Iron (ferrous sulfate)) 325 mg PO BID acetaminophen 500 mg tablet 500 mg PO Q6H PRN Pain gabapentin 300 mg capsule 300 mg PO TID semaglutide 1 mg/dose (2 mg/1.5 mL) subcutaneous pen injector (Ozempic) 1 mg subcut WK Continue as directed semaglutide 1 mg/dose (2 mg/1.5 mL) subcutaneous pen injector (Ozempic) 1 mg subcut WK STOP taking 3 days before surgery dapagliflozin 10 mg tablet (Farxiga) 10 mg PO QAM DO NOT take the morning of surgery cyanocobalamin (vitamin B-12) 1,000 mcg tablet 1,000 mcg PO BID lisinopril 40 mg tablet 40 mg PO QAM metformin 1,000 mg tablet 1,000 mg PO BID spironolactone 25 mg tablet 25 mg PO QAM multivitamin 1 tab PO QAM ferrous sulfate 325 mg (65 mg iron) tablet (Iron (ferrous sulfate)) 325 mg PO BID Take morning of surgery With a small sip of water, OTHERWISE NOTHING TO EAT OR DRINK AFTER MIDNIGHT: aspirin 81 mg tablet,delayed release 81 mg PO QAM (unless surgeon directed otherwise) atorvastatin 40 mg tablet 40 mg PO QAM bisoprolol 10 mg-hydrochlorothiazide 6.25 mg tablet 1 tab PO QAM clonidine HCl 0.1 mg tablet 0.1 mg PO UD hydralazine 25 mg tablet 25 mg PO BID minoxidil 2.5 mg tablet 5 mg PO BID pantoprazole 40 mg tablet,delayed release 40 mg PO QAM acetaminophen 500 mg tablet 500 mg PO Q6H PRN Pain (if needed) gabapentin 300 mg capsule 300 mg PO TID Take evening before surgery clonidine HCl 0.1 mg tablet 0.1 mg PO UD cyanocobalamin (vitamin B-12) 1,000 mcg tablet 1,000 mcg PO BID hydralazine 25 mg tablet 25 mg PO BID lorazepam 0.5 mg tablet 0.5 mg PO HS PRN Anxiety (if needed) metformin 1,000 mg tablet 1,000 mg PO BID minoxidil 2.5 mg tablet 5 mg PO BID ferrous sulfate 325 mg (65 mg iron) tablet (Iron (ferrous sulfate)) 325 mg PO BID insulin lispro protamine-lispro 100 unit/mL (75-25) subcutaneous pen (Humalog Mix 75-25 KwikPen) 1 unit subcut UD acetaminophen 500 mg tablet 500 mg PO Q6H PRN Pain (if needed) gabapentin 300 mg capsule 300 mg PO TID Insulin Dependent Diabetic Patients * Test your blood sugar the morning of surgery * If Blood Sugar is GREATER THAN 150, take HALF of your regular dose of: insulin lispro protamine-lispro 100 unit/mL (75-25) subcutaneous pen (Humalog Mix 75- 25 KwikPen) 1 unit subcut UD (20 units) * If Blood Sugar is LESS THAN 150, DO NOT TAKE ANY: insulin lispro protamine-lispro 100 unit/mL (75-25) subcutaneous pen (Humalog Mix 75-25 KwikPen) 1 unit subcut UD Other Notes If you have any questions please call us at [phone] or [phone] or [phone] or [phone]
--- NOTE | 2022-05-06 10:20 | Anesthesiology Consultation ---
Date of Service May 06, 2022 Assessment & Plan (1) Encounter for pre-operative examination: - previous cardiology note 03/18/21 includes notation "...will need follow up with Dr. Mason in [facility], [place], operated by [facility] for ongoing assessment of multivessel stenting and evaluation of non stented side branches..." I discussed case in detail with Dr. Shah who advised patient will also need cardiology pre-op evaluation with [facility], [place], operated by [facility] prior to planned surgery. I contacted patient to relay this information and he states he no longer follows with [facility]/no longer has insurance that covers care at [facility], [place], operated by [facility]. This was discussed with Dr. Shah who advised awaiting upcoming local cardiology pre-op evaluation and will review case again at that time. - check BSG am DOS. - cardiology pre-op 05/12/22: [facility]. - PCP pre-op 05/13/22. Chart Review Chart Review: Pending: Refer to Additional Notes / Consult section and Patient seen in Pre Admission Testing Teaching & Discussion Pre-Anesthesia Teaching/Discussion Notes: Instructed NPO after midnight before surgery, except medications with 15 cc of water. Medication instructions provided according to the PAT guidelines. History Surgery Operation Date: 05/27/22 10:35 Proposed Procedures p L2-L3 Decompression and Fusion, L3-L5 Hardware Removal, Spinal Cord Monitoring - Yamil Hull, Height/Weight Height: 6 ft 2 in Weight: 116.8 kg Allergies Allergy/AdvReac Type Severity Reaction Status Date / Time pneumococcal vaccine Allergy Mild FLU-LIKE Verified 04/25/22 09:50 SYMPTOMS Medications Home Medications Medication Instructions Recorded Confirmed Last Taken aspirin 81 mg tablet,delayed 81 mg PO QAM 05/04/20 04/25/22 07/28/21 release atorvastatin 40 mg tablet 40 mg PO QAM 05/04/20 04/25/22 07/29/21 05:00 bisoprolol 10 1 tab PO QAM 05/04/20 04/25/22 07/29/21 05:00 mg-hydrochlorothiazide 6.25 mg tablet clonidine HCl 0.1 mg tablet 0.1 mg PO UD 05/04/20 04/25/22 07/29/21 18:00 cyanocobalamin (vitamin B-12) 1,000 mcg PO BID 05/04/20 04/25/22 07/29/21 05:00 1,000 mcg tablet hydralazine 25 mg tablet 25 mg PO BID 05/04/20 04/25/22 07/29/21 18:00 lisinopril 40 mg tablet 40 mg PO QAM 05/04/20 04/25/22 07/29/21 05:00 lorazepam 0.5 mg tablet 0.5 mg PO HS PRN Anxiety 05/04/20 04/25/22 07/16/21 metformin 1,000 mg tablet 1,000 mg PO BID 05/04/20 04/25/22 07/29/21 05:00 minoxidil 2.5 mg tablet 5 mg PO BID 05/04/20 04/25/22 07/29/21 18:00 pantoprazole 40 mg tablet,delayed 40 mg PO QAM 05/04/20 04/25/22 07/30/21 05:00 release spironolactone 25 mg tablet 25 mg PO QAM 05/04/20 04/25/22 07/30/21 05:00 dapagliflozin 10 mg tablet 10 mg PO QAM 05/03/21 04/25/22 07/29/21 05:00 (Farxiga) insulin lispro protamine-lispro 1 unit subcut UD 05/03/21 04/25/22 07/30/21 05:00 100 unit/mL (75-25) subcutaneous 30 units pen (Humalog Mix 75-25 KwikPen) multivitamin 1 tab PO QAM 05/03/21 04/25/22 07/29/21 05:00 ferrous sulfate 325 mg (65 mg 325 mg PO BID 07/14/21 04/25/22 07/29/21 18:00 iron) tablet (Iron (ferrous sulfate)) acetaminophen 500 mg tablet 500 mg PO Q6H PRN Pain 04/25/22 04/25/22 Unknown gabapentin 300 mg capsule 300 mg PO TID 04/25/22 04/25/22 Unknown semaglutide 1 mg/dose (2 mg/1.5 1 mg subcut WK 04/25/22 04/25/22 Unknown mL) subcutaneous pen injector (Ozempic) Past Medical History Medical History (Updated 05/06/22 @ 10:30 by Pastora Colon PA-C) CKD (chronic kidney disease) stage 2, GFR 60-89 ml/min Coronary artery disease total occlusion RCA, residual multivessel CAD, pt refused CABG. 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 Exercise / Class Metabolic Activity II 4-5 Yardwork/Stairs/Walk up hill (denies chest discomfort or shortness of breath with 1 FOS) Past Family History Family History Other No family history of adverse response to anesthesia Past Surgical History Surgical History (Updated 05/06/22 @ 10:16 by Pastora Colon PA-C) History of arthroscopy RT/LEFT KNEE History of carpal tunnel release RT/LEFT History of colonoscopy History of esophagogastroduodenoscopy (EGD) History of heart artery stent 04/2019-Cx 05/2020>1 STENT PLACED AT [facility] 07/2020>3 STENTS PLACED IN [facility]. total occlusion RCA-offered CABG and pt refused. FOLLOWED DR. HERNANDEZ/[facility], Dr. Mason [facility], [place], operated by [facility] History of lumbar fusion 07/30/21 [facility] Grade 2 view, MAC 4, ETT 8. History of tooth extraction History of trigger finger bilat thumbs with release Hx of vasectomy Past Anesthesia History No Family Hx of Anesthesia Complications and Other (slow to wake, denies re- intubation) History of PONV No Hx of PONV and No Hx of Motion Sickness Social History Smoking Status: Never smoker tobacco type: cigarettes and smokeless tobacco Smoking cigarettes per day: 30 YEARS AGO Do You Dip or Chew Tobacco: No Smoking End Date: Hx Alcohol Use: Yes Alcohol type: beer alcohol intake frequency: holidays/special occasions only Hx Substance Use: No substance use type: does not use Review of Systems Patient denies chest pain, shortness of breath, dyspnea on exertion, snoring, witnessed apneas, fever, chills, cough, wheezing, or palpitations. Physical Exam Vital Signs Vitals BP 119/71 P 86 TEMP 98.8 SP02 96% on RA RESP 18 Physical Full cervical extension range of motion without pain TMD 3.5 finger breadths Mallampati Score 3 Dentition: intact, denies chipped or loose teeth, caps/crowns, implants or bridges Lungs: normal respiratory effort. Clear throughout to auscultation, no adventitious breath sounds Cardiac: regular rate and rhythm, no murmurs noted Carotid arteries: negative bruit bilat Lab Results Anesthesia Preop Results Results Anesthesia Widget: WBC 8.15 K/ul (4.8-10.8) 05/06/22 Hgb 14.6 g/dl (14.0-18.0) 05/06/22 Hct 42.0 % (42.0-52.0) 05/06/22 Plt 221 K/uL (130-400) 05/06/22 Na 138 mmol/L (136-145) 05/06/22 K 4.1 mmol/L (3.5-5.1) 05/06/22 Cl 103 mmol/L (98-107) 05/06/22 CO2 26 mmol/L (21-32) 05/06/22 BUN 21 mg/dl (6-23) 05/06/22 Creat 0.90 mg/dl (0.6-1.4) 05/06/22 Glucose Level 176 mg/dl (70-99(Fasting)) H 05/06/22 PT 11.1 Seconds (9.0-12.0) 05/06/22 PTT 28.8 Seconds (21.0-31.0) 05/06/22 INR 1.0 (0.9-1.1) 05/06/22 Urine Color Dark Yellow 05/06/22 Urine Appearance Clear (Clear) 05/06/22 Urine pH 5.5 (4.5-7.5) 05/06/22 Urine Specific [place] 1.022 (1.000-1.030) 05/06/22 Urine Protein Negative (Negative) 05/06/22 Urine Glucose (UA) 3+ (Negative) H 05/06/22 Urine Ketones Negative (Negative) 05/06/22 Urine Blood Negative (Negative) 05/06/22 Urine Nitrite Negative (Negative) 05/06/22 Urine Bilirubin Negative (Negative) 05/06/22 Urine Urobilinogen Negative (Negative) 05/06/22 Urine Leukocyte Esterase Negative (Negative) 05/06/22 Blood Type O Positive 05/06/22 Antibody Screen NEGATIVE 05/06/22 Testing Laboratory Results A1c 04/08/22: 7% Electrocardiogram Date: 05/06/22 NSR, rate 85 bpm Chest X-Ray Date: 05/06/22 The heart appears mildly enlarged. The pulmonary vasculature is noncongested. There is chronic elevation of the right hemidiaphragm with bibasilar scarring/atelectasis. The lungs and pleural spaces are otherwise clear. There is no pneumothorax. The bony thorax appears intact. IMPRESSION: No active disease in the chest. Cardiac Catheterization Date: 08/13/20 s/p PCI of LCx 05/2020 with MALLORY on meds RCA: 50-70% ostial/proximal disease, 95% mid disease and a short distal 100% HANDKERCHIEF PRESSER with L-R collaterals PCI of RCA performed: mid and long distal RCA disease covered with overlapping ROSAURA, proximal and ostial RCA treated with Synergy Megatron with minimal protrusion up to a 4.5 nc balloon with good final results. 05/28/20 LM: mild distal disease 15% LAD: proximal 30-40% disease, more distal LAD lesions of 50-60% and 50% Cx: proximal 40% disease, 40-50% disease at take-off of OM1, 90% disease proximal OM, 40% disease inferior branch, 70% disease distal RCA: Known to be 100% occluded, some filling of the RCA system from left to right collaterals Assessment: Multivessel CAD Successful PEST LOCATOR/stenting of the OM1 with a ROSAURA, stenosis reduced from 90% to 0% Plan: Maximize medical therapy for secondary prevention Dual antiplatelet therapy for goal of 1 year (or at least 6 mos if urgent surgery) COVID-19 Risk Screen Screening Information COVID-19 Screen Date: 05/06/22 Exposure 21 Days Family/Household +COVID Last 21 Days: No Exposure 10 Days Any COVID Exposure Last 10 Days: No Symptoms Last 10 Days Experienced COVID Sx Last 10 Days: No + COVID 0-90 Days COVID + in Last 0-90 Days: No
[2022-05-27] MEDS ORDERED: ACETAMINOPHEN 500 MG TAB PO SCH (06:00)
[2022-05-27] MEDS ORDERED: GABAPENTIN 900 MG DOSE PO SCH (06:00)
[2022-05-27] MEDS ORDERED: CeleBREX 200 MG CAP PO SCH (06:00)
[2022-05-27] MEDS ORDERED: LR 15ML/HR IV SCH (06:00)
[2022-05-27] MEDS ORDERED: MIDAZOLAM HCL 1 MG/ML 2ML VIAL ONE (07:00)
[2022-05-27] MEDS ORDERED: fentaNYL citrate PF 100 MCG/2 ML VIAL ONE (07:00)
[2022-05-27] MEDS ORDERED: BUPIVACAINE/EPINEPHRINE 0.25% 1:200,000 30 ML VIAL ONE (07:09)
[2022-05-27] MEDS ORDERED: ceFAZolin 330 MG/ML 1 GM VIAL ONE (07:10)
[2022-05-27] MEDS ORDERED: HYDROmorphone INJ 2 MG/ML SYR/VIAL IV PRN (07:20)
[2022-05-27] MEDS ORDERED: ONDANSETRON INJ 2 MG/ML 2 ML VIAL IV PRN ×2 (07:20→11:16)
[2022-05-27] MEDS ORDERED: ePHEDrine sulfate 50 MG/ML AMP IV PRN (07:20)
[2022-05-27] MEDS ORDERED: ATROPINE SULFATE 0.1 MG/ML 10ML SYR IV PRN (07:20)
[2022-05-27] MEDS ORDERED: fentaNYL citrate PF 100 MCG/2 ML VIAL IV PRN (07:20)
--- NOTE | 2022-05-27 07:33 | History & Physical Bridge Note ---
Date of Service May 27, 2022 History & Physical Bridge Note I have examined the patient, reviewed the History & Physical and in the interval since the performance of the History & Physical I have noted the following changes of clinical significance: no changes noted
--- NOTE | 2022-05-27 07:34 | History & Physical Report ---
Date of Service May 27, 2022 Assessment & Plan (1) Neurogenic claudication due to lumbar spinal stenosis: Plan: L2-L3 decompression and fusion, L3-L5 hardware removal History of Present Illness Chief Complaint: Back and leg pain Primary Care Provider: Bibi Peacock MD This is a 51-year-old male who presents with chronic persistent back and leg pain after failing course of nonoperative care is here for surgical intervention. Allergies Allergy/AdvReac Type Severity Reaction Status Date / Time pneumococcal vaccine Allergy Mild FLU-LIKE Verified 05/27/22 06:10 SYMPTOMS Home Medications Medication Instructions Recorded Confirmed Type aspirin 81 mg tablet,delayed 81 mg PO QAM 05/04/20 05/27/22 History release atorvastatin 40 mg tablet 40 mg PO QAM 05/04/20 05/27/22 History bisoprolol 10 1 tab PO QAM 05/04/20 05/27/22 History mg-hydrochlorothiazide 6.25 mg tablet clonidine HCl 0.1 mg tablet 0.1 mg PO UD 05/04/20 05/27/22 History cyanocobalamin (vitamin B-12) 1,000 mcg PO BID 05/04/20 05/27/22 History 1,000 mcg tablet hydralazine 25 mg tablet 25 mg PO BID 05/04/20 05/27/22 History lisinopril 40 mg tablet 40 mg PO QAM 05/04/20 05/27/22 History lorazepam 0.5 mg tablet 0.5 mg PO HS PRN Anxiety 05/04/20 05/27/22 History metformin 1,000 mg tablet 1,000 mg PO BID 05/04/20 05/27/22 History minoxidil 2.5 mg tablet 5 mg PO BID 05/04/20 05/27/22 History pantoprazole 40 mg tablet,delayed 40 mg PO QAM 05/04/20 05/27/22 History release spironolactone 25 mg tablet 25 mg PO QAM 05/04/20 05/27/22 History dapagliflozin 10 mg tablet 10 mg PO QAM 05/03/21 05/27/22 History (Farxiga) insulin lispro protamine-lispro 1 unit subcut UD 05/03/21 05/27/22 History 100 unit/mL (75-25) subcutaneous pen (Humalog Mix 75-25 KwikPen) multivitamin 1 tab PO QAM 05/03/21 05/27/22 History ferrous sulfate 325 mg (65 mg 325 mg PO BID 07/14/21 05/27/22 History iron) tablet (Iron (ferrous sulfate)) acetaminophen 500 mg tablet 500 mg PO Q6H PRN Pain 04/25/22 05/27/22 History gabapentin 300 mg capsule 300 mg PO TID 04/25/22 05/27/22 History semaglutide 1 mg/dose (2 mg/1.5 1 mg subcut WK 04/25/22 05/27/22 History mL) subcutaneous pen injector (Ozempic) Past Med/Surg History Medical History CKD (chronic kidney disease) stage 2, GFR 60-89 ml/min Coronary artery disease total occlusion RCA, residual multivessel CAD, pt refused CABG. 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 total occlusion RCA-offered CABG and pt refused. FOLLOWED DR. HERNANDEZ/[facility], Dr. Mason [facility] History of lumbar fusion 07/30/21 [facility] Grade 2 view, MAC 4, ETT 8. 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
[2022-05-27] MEDS ORDERED: KETAMINE 50 MG/5 ML SYRINGE ONE (08:05)
[2022-05-27] MEDS ORDERED: LARYING-O-JET KIT (LTA) ONE (08:21)
[2022-05-27] MEDS ORDERED: LIDOCAINE 2% MPF LOCAL 5 ML VIAL ONE (08:21)
[2022-05-27] MEDS ORDERED: PROPOFOL IV EMULSION 10 MG/ML 20 ML VIAL IV ONE (08:21)
[2022-05-27] MEDS ORDERED: ROCURONIUM BROMIDE 10 MG/ML 5 ML VIAL IV ONE (08:21)
[2022-05-27] MEDS ORDERED: DEXAMETHASONE SOD INJ 4 MG/ML VIAL ONE (08:21)
[2022-05-27] MEDS ORDERED: NEOSTIGMINE METHYLSULFATE 1 MG/ML 10ML VIAL ONE (08:21)
[2022-05-27] MEDS ORDERED: GLYCOPYRROLATE 0.2 MG/ML VIAL ONE ×2 (08:21→09:43)
[2022-05-27] MEDS ORDERED: ONDANSETRON INJ 2 MG/ML 2 ML VIAL ONE (08:21)
[2022-05-27] MEDS ORDERED: FLOSEAL HEMOSTATIC MATRIX 10ML TOP ONE (08:59)
[2022-05-27] MEDS ORDERED: ALBUMIN HUMAN 5% 12.5 GM/250 ML VIAL IV ONE (09:02)
[2022-05-27] MEDS ORDERED: PHENYLEPHRINE HCL 10 MG/ML VIAL ONE (09:09)
--- NOTE | 2022-05-27 09:44 | Operative Report ---
Post Operative Report Pre & Post Diagnosis Operation Date: 05/27/22 07:45 Pre-Op Diagnosis: Spinal Stenosis, Lumbar Region with Nerurogenic Claudication Post-Op Diagnosis: Spinal Stenosis, Lumbar Region with Nerurogenic Claudication I identified the patient and participated in the time-out.: Yes Procedure Operation Date: 05/27/22 07:45 Actual Procedures #1 Removal of instrumentation L3-L5. #2 exploration of fusion L3 L5. #3 lumbar decompression bilaterally facetectomies and foraminotomies L2-L3. #4 posterior spinal fusion L2-L3. #5 placement posterior instrumentation L2-L5. #6 interbody fusion L2-L3. #7 placement of Spira 14 x 26 mm at L2-3. #8 placement locally harvested morselized autograft in the posterior gutters. Benign placement of I factor amount of the talus in the interbody space and posterior lateral gutters. Surgeon Yamil Hull, DO Company Secretary Jean Paul Brown Estimated Blood Loss 250 Findings See Below The patient is 6 foot 2 weighing over 116 kg with a BMI in excess of 32. Patient's body habitus did contribute to significant technical difficulty requiring her deeper retractors longer instruments in order to perform his procedure. This had at least 50% increased operative time. Specimens None Indications This is a 51-year-old male presents with worsening lumbar spinal stenosis and neurogenic claudication is here for surgical intervention. Description of Procedure Patient was met with identified informed consent obtained. Patient was then taken to the operative suite underwent a patient placed in a prone position the Jex table top Maxi frame. All bony prominences well-padded eyes inspected to ensure no external pressure placed upon the. This point the lumbar spine was prepped and draped in normal sterile fashion. Sharp dissection with the assistance of Bovie cautery was performed down to and exposing the lamina and transverse processes of L2 and instrumentation L3 L4-5 bilaterally. Then proceeded move the hardware bilaterally explore the fusion mass noting it to be maturing. I then performed a complete laminectomy of L2 including bilateral medial facetectomies and foraminotomies addressing severe spinal stenosis. Pedicle screws were then placed in L2-L3 and L5 bilaterally with assistance of fluoroscopy and a platelet sized santino placed. By way the transforaminal approach on the left complete discectomy of L2-L3 was performed endplates corrected to subcortical bleeding bone and a 14 x 26 mm Spira cage with I factor tapped in position. The rods were then compressed locked in final position bilaterally. The transverse processes of L2 and L3 burred to subcortical bleeding bone. I fa ctor amount of the test and locally harvested morselized autograft placed in the posterior gutters. 15 round AIDEE drain inserted. The incision was then closed with 1 Vicryl the fascia 2-0 Vicryl subcutaneously and 4 Monocryl for final skin closure. Steri-Strips and a sterile dressing placed. Patient awakened and taken to PACU in stable condition. Please note spinal cord monitoring was utilized at the procedure no changes noted. Lastly Jean Paul Brown was present throughout the entire procedure involved the patient positioning complex portion of the surgery and final skin closure. I attest to the content of the Intraoperative Record and any orders documented therein. Any exceptions are noted below.
--- NOTE | 2022-05-27 10:50 | Fluoroscopy Report ---
FL lumbar spine 2-3V CLINICAL HISTORY: L2-3D DFI/L3-5 RH COMPARISON STUDY: 07/30/2021. FLUOROSCOPY TIME: 11 seconds FLUOROSCOPY IMAGES: 2 Ka,r: 8.3 mGy FINDINGS: Posterior decompression and fusion from L2 through L5 with pedicle screws and rods. The seun dware appears intact. Disc spaces are place. Linear metallic foreign bodies at the L2-L3 laminectomy site likely representing sponges. The surgeon is aware of this finding. IMPRESSION: Fluoroscopic assistance as above. ACT 112: Negative or not required by law. Electronically signed by: Enrrique Winslow M.D. 05/27/2022 10:49 AM
--- NOTE | 2022-05-27 11:06 | Anesthesiology Progress Note ---
Date of Service May 27, 2022 Anesthesia Post Procedure Vital Signs Vital Signs: Temp Pulse Pulse Resp BP Pulse Ox O2 Del Method 05/27/22 11:00 85 17 139/75 95 Nasal Cannula 05/27/22 10:50 36.5 C 87 17 131/72 95 Nasal Cannula 05/27/22 10:40 89 17 140/70 95 Nasal Cannula 05/27/22 10:30 90 19 135/78 97 Oxymask 05/27/22 10:20 92 H 20 142/73 H 97 Oxymask 05/27/22 10:13 36.7 C 96 H 20 127/73 98 Oxymask 05/27/22 06:16 36.9 C 92 H 20 145/78 H 95 Room Air O2 Flow Rate 05/27/22 11:00 4 05/27/22 10:50 4 05/27/22 10:40 4 05/27/22 10:30 5 05/27/22 10:20 5 05/27/22 10:13 5 05/27/22 06:16 Pain Intensity Bilateral Lower Back: Pain Intensity: 6 Transfer of Care Handoff Completed per policy Notes Mental Status: alert / awake / arousable and participated in evaluation Patient Amnestic to Procedure: Yes Nausea / Vomiting: adequately controlled Pain: adequately controlled Airway Patency, RR, SpO2: stable & adequate BP & HR: stable & adequate Hydration State: stable & adequate Anesthetic Complications: no major complications apparent and Pt Satisfied with anesthetic care
[2022-05-27] MEDS ORDERED: diphenhydrAMINE Capsule 25 MG CAP PO PRN (11:16)
[2022-05-27] MEDS ORDERED: HYDROmorphone INJ 1 MG/ML SYRINGE IV PRN (11:16)
[2022-05-27] MEDS ORDERED: DO NOT ADMINISTER FLU VACCINE PRN (11:16)
[2022-05-27] MEDS ORDERED: MAGNESIUM HYDROXIDE SUSP 30 ML UDC PO PRN (11:16)
[2022-05-27] MEDS ORDERED: hydrOXYzine HCl 25 MG TAB PO PRN (11:16)
[2022-05-27] MEDS ORDERED: LORazepam 0.5 MG TAB PO PRN (11:16)
[2022-05-27] MEDS ORDERED: SOD PHOSPHATE/SOD BIPHOSPHATE ENEMA 132 ML BTL PR PRN (11:16)
[2022-05-27] MEDS ORDERED: PROMETHAZINE HCL 12.5 MG in SODIUM CHLORIDE 0.9% 50 ML IV PRN (11:16)
[2022-05-27] MEDS ORDERED: LORazepam 2 MG/1 ML VIAL IV PRN (11:16)
[2022-05-27] MEDS ORDERED: ONDANSETRON 4 MG OD TAB PO PRN (11:16)
[2022-05-27] MEDS ORDERED: bisacodyL 10 MG SUPP PR PRN (11:16)
[2022-05-27] MEDS ORDERED: ACETAMINOPHEN 1,000 MG/100 ML VIAL IV PRN (11:16)
[2022-05-27] MEDS ORDERED: ALUMINUM/MAGNESIUM SUSP 30 ML UDC PO PRN (11:16)
[2022-05-27] MEDS ORDERED: HYDROmorphone INJ 0.5 MG/0.5 ML SYR IV PRN (11:16)
[2022-05-27] MEDS ORDERED: NALOXONE HCL 0.4 MG/1 ML VIAL/CARP IV PRN (11:16)
[2022-05-27] MEDS ORDERED: FAMOTIDINE 20 MG TAB PO PRN (11:16)
[2022-05-27] MEDS ORDERED: METOCLOPRAMIDE HCL INJ 5 MG/ML 2 ML VIAL IV PRN (11:16)
[2022-05-27] MEDS ORDERED: PHARMACY GLYCEMIC MGMT CONSULT PRN ×2 (11:16→12:29)
[2022-05-27] MEDS ORDERED: DO NOT ADMINISTER PNEUMOCOCCAL VACCINE PRN (11:16)
[2022-05-27] MEDS: SODIUM CHLORIDE 0.9% 1000ML 1,000 ML IV SCH ×2 (11:32→18:25)
--- NOTE | 2022-05-27 11:35 | Hospitalist Consultation ---
Date of Consultation May 27, 2022 Assessment & Plan (1) Status post lumbar surgery: - Pain management, bowel regimen and DVT ppx per the primary team - PT/OT consults, pt is planning on outpatient therapy - Cm to assist with dc planning - Follow am CBC to monitor for acute blood loss - Elliott catheter and AIDEE drain in place (2) Diabetes mellitus, type 2: - Consult glycemic pharmacy -Patient takes Humalog mix 7525, 40 units with breakfast and 80 units with the evening meal, Ozempic on Mondays, , and metformin -ISS with Accu-Cheks ACHS -Continue Humalog standing doses twice daily (3) CAD (coronary artery disease): (4) Hypertension: (5) History of heart artery stent: -Continue baby aspirin, lisinopril, statin therapy, bisoprolol/HCTZ, clonidine, hydralazine -BP is well controlled at 120/77 -Diet and exercise to be encouraged (6) CKD (chronic kidney disease) stage 2, GFR 60-89 ml/min: -A.m. BMP to monitor creatinine CODE STATUS: FULL DVT ppx: Teds, SCDs Dispo: Patient from home, likely to remain in the hospital x1 to 2 days A total of 35 minutes were spent with greater than 50% of that time face to face with the patient, personally reviewing all current laboratories, imaging studies, past medication reconciliation, outpatient chart review, and discussion with specialists to collaborate care for the patient with attending. Please see attending documentation for corrections and/or additions. Supervising Physician Co-Signing Physician Notes Pt seen and examined by me, care coordinated w/ Germán Grimaldo PA-C, pls refer to her note above for further detail. Pt is a 51 yo M with insulin dependent DM type II, CKD stage II, HTN, HLD, history of skin cancer, who is s/p lumbar decompression bilateral facetectomy and foraminotomy, removal of previous instrumentation, and placement of hardware by Dr. Hull on 05/27/2022. Pt reports doing well, just ate lunch. Denies any nausea, or abd. pain. Also denies any chest pain or shortness of breath, but is on 2L of suppl. O2. He is awake alert oriented, answering appropriately. Lung sounds clear to auscultation. Heart sounds regular. Abdomen soft nontender non distended. Patient moves extremities Pt's is present at bedside. Continue to closely monitor, H&H ordered for AM, adjust insulin as needed (pt with hx of hyperglycemia w/ steroid administration). MD [place] History of Present Illness Reason for Consultation: Post op Medical Management Requesting Physician: Dr. Hull Attending Physician: Yamil Hull, DO History of Present Illness This is a 51 yo M with PMhx of DM type II, CKD stage II, HTN, HLD, history of skin cancer, who presents to the ER for elective L3-L5 lumbar decompression bilateral facetectomy and foraminotomy, removal of previous instrumentation, and placement of hardware by Dr. Hull on 05/27/2022. Pt reports doing well, he has just come up from PACU and states is still feeling sleepy. Denies any pain or numbness in his lower body. Last BM was around 2am. Pt reports he has taken his normal routine medications. Pt is on multiple medications for diabetes which were reviewed with him at bedside and that will use insulin while admitted. He reports hx of previous back surgery caused constipation with pain medications. Pt is currently on 2 L o2 but does not wear any at baseline or cpap hs. His is present at bedside. Allergies Allergy/AdvReac Type Severity Reaction Status Date / Time pneumococcal vaccine Allergy Mild FLU-LIKE Verified 05/27/22 06:10 SYMPTOMS Home Medications Medication Instructions Recorded Confirmed Type aspirin 81 mg tablet,delayed 81 mg PO QAM 05/04/20 05/27/22 History release atorvastatin 40 mg tablet 40 mg PO QAM 05/04/20 05/27/22 History bisoprolol 10 1 tab PO QAM 05/04/20 05/27/22 History mg-hydrochlorothiazide 6.25 mg tablet clonidine HCl 0.1 mg tablet 0.1 mg PO UD 05/04/20 05/27/22 History cyanocobalamin (vitamin B-12) 1,000 mcg PO BID 05/04/20 05/27/22 History 1,000 mcg tablet hydralazine 25 mg tablet 25 mg PO BID 05/04/20 05/27/22 History lisinopril 40 mg tablet 40 mg PO QAM 05/04/20 05/27/22 History metformin 1,000 mg tablet 1,000 mg PO BID 05/04/20 05/27/22 History minoxidil 2.5 mg tablet 5 mg PO BID 05/04/20 05/27/22 History pantoprazole 40 mg tablet,delayed 40 mg PO QAM 05/04/20 05/27/22 History release spironolactone 25 mg tablet 25 mg PO QAM 05/04/20 05/27/22 History dapagliflozin 10 mg tablet 10 mg PO QAM 05/03/21 05/27/22 History (Farxiga) insulin lispro protamine-lispro 1 unit subcut UD 05/03/21 05/27/22 History 100 unit/mL (75-25) subcutaneous pen (Humalog Mix 75-25 KwikPen) multivitamin 1 tab PO QAM 05/03/21 05/27/22 History ferrous sulfate 325 mg (65 mg 325 mg PO BID 07/14/21 05/27/22 History iron) tablet (Iron (ferrous sulfate)) acetaminophen 500 mg tablet 500 mg PO Q6H PRN Pain 04/25/22 05/27/22 History gabapentin 300 mg capsule 300 mg PO TID 04/25/22 05/27/22 History semaglutide 1 mg/dose (2 mg/1.5 1 mg subcut WK 04/25/22 05/27/22 History mL) subcutaneous pen injector (Ozempic) oxycodone-acetaminophen 5 mg-325 1 tab PO Q8H #30 tabs 05/27/22 Rx mg tablet (Percocet) tramadol 50 mg tablet 50 mg PO Q6H PRN pain, moderate 05/27/22 Rx #30 tabs Patient History Medical History (Updated 05/27/22 @ 11:47 by Maylin Grimaldo PA-C) CKD (chronic kidney disease) stage 2, GFR 60-89 ml/min Coronary artery disease total occlusion RCA, residual multivessel CAD, pt refused CABG. 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 total occlusion RCA-offered CABG and pt refused. FOLLOWED DR. HERNAN[facility], Dr. Mason [facility] History of lumbar fusion 07/30/21 [facility] Grade 2 view, MAC 4, ETT 8. 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 Beliefs That Will Affect Care: None marital status: Current Living Situation: Spouse Feels Safe at Home: Yes Safety Concerns: Feels Safe At This Time Assistive Devices: Denture - Upper and Glasses Review of Systems Review of Systems: Constitutional: No fever, sweats or chills Eyes: No diplopia, no worsening or blurred vision ENT: normal hearing, no trouble swallowing Respiratory: No cough, sputum, dyspnea at rest or on exertion Cardiovascular: No chest pain, tightness or palpitations Abdomen: No pain, nausea, vomiting, diarrhea or constipation : elliott catheter in place and causing some irritation Musculoskeletal: No joint pain, calf pain, swelling Neurologic: No weakness, numbness/tingling, or balance problems Psychiatric: No anxiety or depression Skin: No rash or itch Physical Exam Physical Exam: General: awake, alert, no apparent distress, + obese with BMI 32.9 Head: Normocephalic, atraumatic ENT: PERRL, EOMI, no pharyngeal exudate, mucous membranes moist Chest: Clear to auscultation, on 2 L NC with sats in high 90s, no adventitious breath sounds Cardiac: Regular rate and rhythm, no murmur, no JVD, normal peripheral pulses, good capillary refill Abdominal: NABS x 4 quadrants, soft, nondistended, nontender to palpation, no rebound or guarding Back: dressing c/d/i, AIDEE drain nearly full with serosanguineous bloody fluid Extremities: Normal inspection, no peripheral edema or erythema, calfs nontender to palpation : elliott catheter in place, draining clear yellow urine Psych: Normal mood and affect Neuro: AAO x 3, strength intact bilaterally and rated 5/5, no motor deficits, speech is clear, no peripheral sensory deficits Results & Data Results & Data Vital Signs (Past 12 Hours) Vital Signs Temp Pulse Pulse Resp BP Pulse Ox O2 Del Method 05/27/22 11:17 37.4 C 90 16 145/79 H 93 Nasal Cannula 05/27/22 11:00 85 17 139/75 95 Nasal Cannula 05/27/22 10:50 36.5 C 87 17 131/72 95 Nasal Cannula 05/27/22 10:40 89 17 140/70 95 Nasal Cannula 05/27/22 10:30 90 19 135/78 97 Oxymask 05/27/22 10:20 92 H 20 142/73 H 97 Oxymask 05/27/22 10:13 36.7 C 96 H 20 127/73 98 Oxymask 05/27/22 06:16 36.9 C 92 H 20 145/78 H 95 Room Air O2 Flow Rate 05/27/22 11:17 4 05/27/22 11:00 4 05/27/22 10:50 4 05/27/22 10:40 4 05/27/22 10:30 5 05/27/22 10:20 5 05/27/22 10:13 5 05/27/22 06:16 Laboratory Results 05/27/22 05/27/22 05/27/22 12:18 10:15 06:12 POC Glucose 237 H 224 H 177 H SARS-CoV-2, RNA, NAAT 05/27/22 06:05 POC Glucose SARS-CoV-2, RNA, NAAT NEGATIVE Diagnostic Findings Lumbar Spine X-Ray 05/27/22 07:45 FL lumbar spine 2-3V CLINICAL HISTORY: L2-3D DFI/L3-5 RH COMPARISON STUDY: 07/30/2021. FLUOROSCOPY TIME: 11 seconds FLUOROSCOPY IMAGES: 2 Ka,r: 8.3 mGy FINDINGS: Posterior decompression and fusion from L2 through L5 with pedicle screws and rods. The hardware appears intact. Disc spaces are place. Linear metallic foreign bodies at the L2-L3 laminectomy site likely representing sponges. The surgeon is aware of this finding. IMPRESSION: Fluoroscopic assistance as above. ACT 112: Negative or not required by law. Electronically signed by: Enrrique Winslow M.D. 05/27/2022 10:49 AM
[2022-05-27] MEDS ORDERED: GLUCOSE 10 TAB/TUBE PO PRN (12:15)
[2022-05-27] MEDS ORDERED: DEXTROSE 50% 50 ML SYRINGE IV PRN (12:15)
[2022-05-27] MEDS ORDERED: CARBOHYDRATES FOR HYPOGLYCEMIA PO PRN ×2 (12:15→12:24)
[2022-05-27] MEDS ORDERED: GLUCAGON FOR INJ 1 MG VIAL IM PRN (12:15)
[2022-05-27] MEDS ORDERED: GLUCOSE 40% GEL 15 GM TUBE PO PRN (12:15)
[2022-05-27] MEDS ORDERED: LANTUS PER UNIT CHARGE SQ ONE (12:45)
[2022-05-27] MEDS: INSULIN ASPART PER UNIT CHARGE SC SCH ×4 (12:59→23:46)
[2022-05-27] MEDS: GABAPENTIN 300 MG CAP PO SCH ×2 (14:41→21:10)
--- NOTE | 2022-05-27 14:50 | Pharmacy Report ---
Pharmacy Glycemic Short Note 2 - Date of Service May 27, 2022 - Glycemic Short BSG Results (Last 24 hours): 05/27/22 05/27/22 05/27/22 06:12 10:15 12:18 POC Glucose 177 H 224 H 237 H OUTPATIENT ANTIDIABETIC REGIMEN: * Humalog mix 40 units Qam, 80 units Qpm, metformin, ozempic, farxiga ASSESSMENT: * 51 year old s/p spinal procedure, type 2 diabetic - pharmacy consulted for glycemic management. Patient reports taking home mix insulin this morning of 40 units. Post op BSG 237 mg/dL likely due to steroids given intraoperatively. Will give an additional 10 units of Lantus now * Will start novolog based upon outpatient TDD of ~120 units with stress of 2. Will have scale for basal insulin at HS time PLAN FOR INPATIENT GLYCEMIC CONTROL: * Hold outpatient oral diabetes medications * Basal insulin * Lantus 10 units x 1 * Lantus 30-40 units HS * Bolus insulin * NovoLog per scale ACHS or Q6hrs while NPO * Goal Range: Low 110 mg/dL - High 140 mg/dL * Correction Factor: 10 mg/dL/unit * Nutritional / Prandial insulin per carb ratio of 1 unit per 3 grams CHO consumed
[2022-05-27] MEDS: ceFAZolin 2000MG 2,000 MG/15 ML SYR IV SCH ×2 (16:22→23:40)
[2022-05-27] MEDS ORDERED: INSULIN ASPART PER UNIT CHARGE SC SCH (16:30)
[2022-05-27] MEDS ORDERED: LANTUS PER UNIT CHARGE SQ SCH (21:00)
[2022-05-27] MEDS ORDERED: NovoLIN-R INSULIN PER UNIT CHARGE SC SCH (21:00)
[2022-05-27] MEDS: oxyCODONE HCL IR 5 MG TAB (IMMEDIATE RELEASE) PO PRN (21:06)
[2022-05-27] MEDS: hydrALAZINE HCL 25 MG TAB PO SCH (21:08)
[2022-05-27] MEDS: CYANOCOBALAMIN (B-12) 500 MCG TABLET PO SCH (21:08)
[2022-05-27] MEDS: minoxidiL 2.5 MG TAB PO SCH (21:10)
[2022-05-27] MEDS: DOCUSATE SODIUM/SENNA 50/8.6MG TAB PO SCH (21:10)
[2022-05-27] MEDS: FERROUS SULFATE 325 MG TAB PO SCH (21:10)
[2022-05-27] MEDS: traMADol HCL 50 MG TABLET PO PRN (23:47)
[2022-05-28] MEDS: INSULIN ASPART PER UNIT CHARGE SC SCH ×5 (03:33→21:37)
[2022-05-28] MEDS: POLYETHYLENE (MIRALAX) 17 GM PACK PO SCH ×3 (05:47→17:40)
[2022-05-28] MEDS: oxyCODONE HCL IR 5 MG TAB (IMMEDIATE RELEASE) PO PRN ×2 (05:50→20:39)
[2022-05-28 06:29] LABS: Basophils # (auto) 0.02 K/uL (0-0.2); Basophils % (auto) 0.2 %; Eosinophils # (auto) 0.07 K/uL (0-0.50); Eosinophils % (auto) 0.8 %; Hematocrit (blood only) 33.6 % (42.0-52.0); Hemoglobin 11.7 g/dl (14.0-18.0); Immature Granulocytes # (auto) 0.03 K/uL (0.01-0.20); Immature Granulocytes % (auto) 0.3 %; Lymphocytes # (auto) 1.44 K/uL (1.2-3.4); Lymphocytes % (auto) 15.6 %; Mean Corpuscular Hemoglobin 31.7 pg (25.0-34.0); Mean Corpuscular Hgb Conc 34.8 g/dL (32.0-36.0); Mean Corpuscular Volume 91.1 fL (80.0-100.0); Mean Platelet Volume 9.5 fL (9.4-12.4); Monocytes # (auto) 1.03 K/uL (0.11-0.59); Monocytes % (auto) 11.2 %; Neutrophils # (auto) 6.62 K/uL (1.40-6.50); Neutrophils % (auto) 71.9 %; Platelet Count 173 K/uL (130-400); RDW Coefficient of Variation 13.1 % (11.5-14.5); RDW Standard Deviation 43.2 fL (36.4-46.3); Red Blood Count 3.69 M/uL (4.70-6.10); White Blood Count 9.21 K/ul (4.8-10.8)
[2022-05-28] MEDS ORDERED: NovoLIN-R INSULIN PER UNIT CHARGE SC SCH (06:30)
[2022-05-28 06:34] LABS: BUN Creatinine Ratio 15.3 (10-20); Calcium 8.8 mg/dl (8.6-10.3); Creatinine Clr Calc Pharmacy 136.1 ml/min; Est GFR (African American) 115.3 ml/min; Est GFR (Non-African American) 99.5 ml/min; Potassium 3.6 mmol/L (3.5-5.1)
[2022-05-28] MEDS ORDERED: POTASSIUM CHLORIDE CRTAB 20 MEQ TABCR PO STA (08:12)
--- NOTE | 2022-05-28 08:13 | Hospitalist Progress Note ---
Date of Service May 28, 2022 Assessment & Plan (1) Status post lumbar surgery: Plan: - Pain management, bowel regimen and DVT ppx per the primary team - PT/OT consults, pt is planning on outpatient therapy - Cm to assist with dc planning - Follow am CBC to monitor for acute blood loss - Elliott catheter and AIDEE drain in place Acute blood loss anemia, post-op and likely also dilutional - pre-op Hgb 14.6, current 11.7 - expected, no need for blood transfusion - monitor H&H (2) Diabetes mellitus, type 2: Plan: - insulin dependent -Patient takes Humalog mix 7525, 40 units with breakfast and 80 units with the evening meal, Ozempic on Mondays, , and metformin -ISS with Accu-Cheks ACHS -Continue Humalog standing doses twice daily -Glycemic pharmacy consulted (3) CAD (coronary artery disease): (4) Hypertension: (5) History of heart artery stent: Plan: -Continue baby aspirin, lisinopril, statin therapy, bisoprolol/HCTZ, clonidine, hydralazine -BP is well controlled at 120/77 -Diet and exercise to be encouraged (6) CKD (chronic kidney disease) stage 2, GFR 60-89 ml/min: Plan: -monitor renal function, BMP AM ordered CODE STATUS: FULL DVT ppx: Lamonte Foy Dispo: Patient from home, likely to remain in the hospital x1 to 2 days Admission and Anticipated Discharge Date Admission Date: May 27, 2022 Subjective Pt seen in follow up of med consult for s/p spinal surgery Currently sitting up in chair, in NAD Feeling well overall, voices no complaints. No fevers, chills, chest pain, shortness of breath. No abdominal pain, n/v Review of Systems Review of Systems: All systems reviewed & are unremarkable except as noted in Subjective Physical Exam Physical Exam: General: awake, alert, no apparent distress, + obese with BMI 32.9 Head: Normocephalic, atraumatic ENT: PERRL, EOMI Chest: Clear to auscultation, no adventitious breath sounds Cardiac: Regular rate and rhythm, no murmur, no JVD Abdominal: NABS x 4 quadrants, soft, nondistended, nontender to palpation Back: dressing c/d/i, +AIDEE drain w/ serosanguineous fluid Extremities: Normal inspection, no peripheral edema or erythema : elliott catheter in place, draining clear yellow urine Psych: Normal mood and affect Neuro: AAO x 3, speech fluent, moves extremities Results & Data Results & Data Vital Signs (Past 12 Hours) Vital Signs Temp Pulse Pulse Resp BP Pulse Ox O2 Del Method 05/28/22 07:25 37.4 C 85 14 140/60 90 Room Air 05/28/22 03:31 37 C 86 18 127/74 94 Room Air 05/27/22 23:37 37.0 C 83 16 130/61 96 Room Air Laboratory Results 05/28/22 05/28/22 05/28/22 Range/Units 05:53 05:53 03:30 WBC 9.21 (4.8-10.8) K/ul RBC 3.69 L (4.70-6.10) M/uL Hgb 11.7 L (14.0-18.0) g/dl Hct 33.6 L (42.0-52.0) % MCV 91.1 (80.0-100.0) fL MCH 31.7 (25.0-34.0) pg MCHC 34.8 (32.0-36.0) g/dL RDW Std Deviation 43.2 (36.4-46.3) fL RDW Coeff of Marybel 13.1 (11.5-14.5) % Plt Count 173 (130-400) K/uL MPV 9.5 (9.4-12.4) fL Immature Gran % (Auto) 0.3 % Neut % (Auto) 71.9 % Lymph % (Auto) 15.6 % [place] % (Auto) 11.2 % Eos % (Auto) 0.8 % Baso % (Auto) 0.2 % Neut # (Auto) 6.62 H (1.40-6.50) K/uL Lymph # (Auto) 1.44 (1.2-3.4) K/uL [place] # (Auto) 1.03 H (0.11-0.59) K/uL Eos # (Auto) 0.07 (0-0.50) K/uL Baso # (Auto) 0.02 (0-0.2) K/uL Immature Gran # (Auto) 0.03 (0.01-0.20) K/uL Sodium 137 (136-145) mmol/L Potassium 3.6 (3.5-5.1) mmol/L Chloride 104 (98-107) mmol/L Carbon Dioxide 27 (21-32) mmol/L Anion Gap 6 (3-11) BUN 13 (6-23) mg/dl Creatinine 0.85 (0.6-1.4) mg/dl Est Cr Clr Drug Dosing 136.1 ml/min Est GFR ( Amer) 115.3 ml/min Est GFR (Non-Af Amer) 99.5 ml/min BUN/Creatinine Ratio 15.3 (10-20) Glucose 143 H (70-99(Fasting)) mg/dl POC Glucose 136 H (70-99) mg/dl Calcium 8.8 (8.6-10.3) mg/dl 05/27/22 05/27/22 05/27/22 Range/Units 23:36 20:53 17:23 WBC (4.8-10.8) K/ul RBC (4.70-6.10) M/uL Hgb (14.0-18.0) g/dl Hct (42.0-52.0) % MCV (80.0-100.0) fL MCH (25.0-34.0) pg MCHC (32.0-36.0) g/dL RDW Std Deviation (36.4-46.3) fL RDW Coeff of Marybel (11.5-14.5) % Plt Count (130-400) K/uL MPV (9.4-12.4) fL Immature Gran % (Auto) % Neut % (Auto) % Lymph % (Auto) % [place] % (Auto) % Eos % (Auto) % Baso % (Auto) % Neut # (Auto) (1.40-6.50) K/uL Lymph # (Auto) (1.2-3.4) K/uL [place] # (Auto) (0.11-0.59) K/uL Eos # (Auto) (0-0.50) K/uL Baso # (Auto) (0-0.2) K/uL Immature Gran # (Auto) (0.01-0.20) K/uL Sodium (136-145) mmol/L Potassium (3.5-5.1) mmol/L Chloride (98-107) mmol/L Carbon Dioxide (21-32) mmol/L Anion Gap (3-11) BUN (6-23) mg/dl Creatinine (0.6-1.4) mg/dl Est Cr Clr Drug Dosing ml/min Est GFR ( Amer) ml/min Est GFR (Non-Af Amer) ml/min BUN/Creatinine Ratio (10-20) Glucose (70-99(Fasting)) mg/dl POC Glucose 154 H 185 H 200 H (70-99) mg/dl Calcium (8.6-10.3) mg/dl 05/27/22 05/27/22 Range/Units 12:18 10:15 WBC (4.8-10.8) K/ul RBC (4.70-6.10) M/uL Hgb (14.0-18.0) g/dl Hct (42.0-52.0) % MCV (80.0-100.0) fL MCH (25.0-34.0) pg MCHC (32.0-36.0) g/dL RDW Std Deviation (36.4-46.3) fL RDW Coeff of Marybel (11.5-14.5) % Plt Count (130-400) K/uL MPV (9.4-12.4) fL Immature Gran % (Auto) % Neut % (Auto) % Lymph % (Auto) % [place] % (Auto) % Eos % (Auto) % Baso % (Auto) % Neut # (Auto) (1.40-6.50) K/uL Lymph # (Auto) (1.2-3.4) K/uL [place] # (Auto) (0.11-0.59) K/uL Eos # (Auto) (0-0.50) K/uL Baso # (Auto) (0-0.2) K/uL Immature Gran # (Auto) (0.01-0.20) K/uL Sodium (136-145) mmol/L Potassium (3.5-5.1) mmol/L Chloride (98-107) mmol/L Carbon Dioxide (21-32) mmol/L Anion Gap (3-11) BUN (6-23) mg/dl Creatinine (0.6-1.4) mg/dl Est Cr Clr Drug Dosing ml/min Est GFR ( Amer) ml/min Est GFR (Non-Af Amer) ml/min BUN/Creatinine Ratio (10-20) Glucose (70-99(Fasting)) mg/dl POC Glucose 237 H 224 H (70-99) mg/dl Calcium (8.6-10.3) mg/dl Medications Administered Current Inpatient Medications Acetaminophen (Acetaminophen 500 Mg Tab) 1,000 mg PO Q8H PRN PRN Reason: MILD Pain Scale 1,2,3 & Pre PT Stop: 06/26/22 11:15 Al Hydrox/Mg Hydrox/Simethicone (Aluminum/Magnesium Susp 30 Ml Udc) 30 ml PO Q6H PRN PRN Reason: Dyspepsia Stop: 06/26/22 11:15 Aspirin (Aspirin 81 Mg Ectab) 81 mg PO QAM [facility] Stop: 06/27/22 08:59 Atorvastatin Calcium ([facility]atin 40 Mg Tab) [facility]: 06/27/22 08:59 Bisacodyl (Bisacodyl 10 Mg Supp) 10 mg SC DAILY PRN PRN Reason: Constipation Stop: 06/26/22 11:15 Bisoprolol Fumarate (Bisoprolol Fumarate 5 Mg Tab) 10 mg PO DAILY [facility] Stop: 06/27/22 08:59 Clonidine HCl (Clonidine Hcl 0.1 Mg Tab) 0.1 mg PO QAM [facility] Stop: 06/27/22 08:59 Clonidine HCl (Clonidine Hcl 0.1 Mg Tab) 0.2 mg PO QAM [facility] Stop: 06/27/22 08:59 Cyanocobalamin (Cyanocobalamin (B-12) 500 Mcg Tablet) 1,000 mcg PO BID [facility] Stop: 06/26/22 20:59 Last Admin: 05/27/22 21:08 Dose: 1,000 mcg Dextrose (Dextrose 50% 50 Ml Syringe) 25 - 50 ml IV UD PRN; Protocol PRN Reason: Hypoglycemia Protocol Stop: 06/26/22 12:14 Diphenhydramine HCl (Diphenhydramine Capsule 25 Mg Cap) 25 mg PO Q6H PRN PRN Reason: Allergic Rhinitis/Insomnia Stop: 06/26/22 11:15 Famotidine (Famotidine 20 Mg Tab) 20 mg PO Q12H PRN PRN Reason: Dyspepsia Stop: 06/26/22 11:15 Ferrous Sulfate (Ferrous Sulfate 325 Mg Tab) 325 mg PO BID [facility] Stop: 06/26/22 20:59 Last Admin: 05/27/22 21:10 Dose: 325 mg Gabapentin (Gabapentin 300 Mg Cap) 300 mg PO TID [facility] Stop: 06/26/22 13:59 Last Admin: 05/27/22 21:10 Dose: 300 mg Glucagon (Glucagon For Inj 1 Mg Vial) 1 mg IM UD PRN; Protocol PRN Reason: Hypoglycemia Protocol Stop: 06/26/22 12:14 Glucose (Glucose 40% Gel 15 Gm Tube) 15 - 30 gm PO UD PRN; Protocol PRN Reason: Hypoglycemia Protocol Stop: 06/26/22 12:14 Glucose (Glucose 10 Tab/Tube) 4 - 8 tab PO UD PRN; Protocol PRN Reason: Hypoglycemia Protocol Stop: 06/26/22 12:14 Hydralazine HCl (Hydralazine Hcl 25 Mg Tab) 25 mg PO BID [facility] Stop: 06/26/22 20:59 Last Admin: 05/27/22 21:08 Dose: 25 mg Hydrochlorothiazide (Hydrochlorothiazide 25 Mg Tab) 6.25 mg PO QAM [facility] Stop: 06/27/22 08:59 Hydromorphone HCl (Hydromorphone Inj 0.5 Mg/0.5 Ml Syr) 0.5 mg IV Q3H PRN PRN Reason: MODERATE Pain (Scale 4,5,6) & Pre PT Stop: 06/10/22 11:15 Last Admin: 05/27/22 12:19 Dose: 0.5 mg Hydromorphone HCl (Hydromorphone Inj 1 Mg/Ml Syringe) 1 mg IV Q3H PRN PRN Reason: SEVERE Pain (Scale 7,8,9,10) Stop: 06/10/22 11:15 Hydroxyzine HCl (Hydroxyzine Hcl 25 Mg Tab) 25 mg PO Q8H PRN PRN Reason: Anxiety Stop: 06/26/22 11:15 Promethazine HCl 12.5 mg/ (Sodium Chloride) 50.5 mls @ 202 mls/hr IV Q6H PRN PRN Reason: Nausea &/or Vomiting Stop: 06/26/22 11:15 Acetaminophen (Ofirmev) 1,000 mg in 100 mls @ 400 mls/hr IV Q8H PRN PRN Reason: Pain Rating 1-3 & Pre PT Stop: 05/28/22 11:16 Influenza Virus Vaccine Quadrival (Do Not Administer Flu Vaccine) 1 each N/A PRN PRN PRN Reason: Notification Stop: 06/26/22 11:15 Insulin Aspart (Insulin Aspart Per Unit Charge) 0 units SC ACHS [facility] Stop: 06/26/22 12:14 Last Admin: 05/27/22 21:05 Dose: 5 units Insulin Glargine (Lantus Per Unit Charge) 40 units SQ DAILY [facility]; Protocol Stop: 06/27/22 08:59 Lisinopril (Lisinopril 40 Mg Tab) 40 mg PO QAM [facility] Stop: 06/27/22 08:59 Lorazepam (Lorazepam 0.5 Mg Tab) 0.5 mg PO Q8H PRN PRN Reason: Sedation/Anxiety Stop: 06/26/22 11:15 Lorazepam (Lorazepam 2 Mg/1 Ml Vial) 0.5 mg IV Q8H PRN PRN Reason: Sedation/Anxiety Stop: 06/26/22 11:15 Magnesium Hydroxide (Magnesium Hydroxide Susp 30 Ml Udc) 30 ml PO Q24H PRN PRN Reason: Constipation Stop: 06/26/22 11:15 Metoclopramide HCl (Metoclopramide Hcl Inj 5 Mg/Ml 2 Ml Vial) 10 mg IV Q6H PRN PRN Reason: Nausea &/or Vomiting Stop: 06/26/22 11:15 Minoxidil (Minoxidil 2.5 Mg Tab) 5 mg PO BID [facility] Stop: 06/26/22 20:59 Last Admin: 05/27/22 21:10 Dose: 5 mg Miscellaneous (Carbohydrates For Hypoglycemia ) 15 - 30 gm PO UD PRN PRN Reason: Hypoglycemia Treatment Stop: 06/26/22 12:14 Miscellaneous (Carbohydrates For Hypoglycemia ) 15 - 30 gm PO UD PRN PRN Reason: Hypoglycemia Protocol Stop: 06/26/22 12:23 Miscellaneous Information (Pharmacy Glycemic Mgmt Consult) 1 each N/A UD PRN PRN Reason: Consult Stop: 06/26/22 11:15 Multivitamins (Multivitamin Tab) 1 tab PO QAM [facility] Stop: 06/27/22 08:59 Naloxone HCl (Naloxone Hcl 0.4 Mg/1 Ml Vial/Carp) 0.1 mg IV Q5M PRN PRN Reason: Oversedation/Resp depression Stop: 06/26/22 11:15 Ondansetron HCl (Ondansetron Inj 2 Mg/Ml 2 Ml Vial) 4 mg IV Q6H PRN PRN Reason: Nausea &/or Vomiting Stop: 06/26/22 11:15 Ondansetron HCl (Ondansetron 4 Mg Od Tab) 4 mg PO Q6H PRN PRN Reason: Nausea Stop: 06/26/22 11:15 Oxycodone HCl (Oxycodone Hcl Ir 5 Mg Tab (Immediate Release)) 5 - 10 mg PO Q4H PRN PRN Reason: Pain & Pre PT Stop: 06/10/22 11:15 Last Admin: 05/28/22 05:50 Dose: 10 mg Pantoprazole Sodium (Pantoprazole 40 Mg Tab) 40 mg PO QAM [facility] Stop: 06/27/22 08:59 Pneumococcal Polyvalent Vaccine (Do Not Administer Pneumococcal Vaccine) 1 each N/A PRN PRN PRN Reason: Notification Stop: 06/26/22 11:15 Polyethylene Glycol (Polyethylene (Miralax) 17 Gm Pack) 17 gm PO Q6 [facility] Stop: 06/27/22 05:59 Last Admin: 05/28/22 05:47 Dose: 17 gm Potassium Chloride (Potassium Chloride Crtab 20 Meq Tabcr) 20 meq PO NOW STA Stop: 05/28/22 08:13 Senna/Docusate Sodium (Docusate Sodium/Senna 50/8.6mg Tab) 2 tab PO HS DAREK Stop: 06/26/22 20:59 Last Admin: 05/27/22 21:10 Dose: 2 tab Sodium Biphosphate/Sodium Phosphate (Sod Phosphate/Sod Biphosphate Enema 132 Ml Btl) 132 ml SC ONE PRN PRN Reason: Constipation Stop: 06/26/22 11:15 Spironolactone (Spironolactone 25 Mg Tab) 25 mg PO QAM [facility] Stop: 06/27/22 08:59 Tramadol HCl (Tramadol Hcl 50 Mg Tablet) 50 - 100 mg PO Q4H PRN PRN Reason: Moderate-Severe pain & Pre PT Stop: 06/26/22 11:15 Last Admin: 05/27/22 23:47 Dose: 100 mg
[2022-05-28] MEDS: ASPIRIN 81 MG ECTAB PO SCH (08:46)
[2022-05-28] MEDS: ATORVASTATIN 40 MG TAB PO SCH (08:47)
[2022-05-28] MEDS: BISOPROLOL FUMARATE 5 MG TAB PO SCH (08:49)
[2022-05-28] MEDS: cloNIDine HCL 0.1 MG TAB PO SCH (08:51)
[2022-05-28] MEDS: FERROUS SULFATE 325 MG TAB PO SCH ×2 (08:52→20:41)
[2022-05-28] MEDS: CYANOCOBALAMIN (B-12) 500 MCG TABLET PO SCH ×2 (08:52→20:41)
[2022-05-28] MEDS: GABAPENTIN 300 MG CAP PO SCH ×3 (08:54→20:42)
[2022-05-28] MEDS: hydrALAZINE HCL 25 MG TAB PO SCH ×2 (08:54→20:42)
[2022-05-28] MEDS: hydroCHLOROthiazide 25 MG TAB PO SCH (08:56)
[2022-05-28] MEDS: lisinopril 40 MG TAB PO SCH (08:58)
[2022-05-28] MEDS: minoxidiL 2.5 MG TAB PO SCH ×2 (08:59→20:42)
[2022-05-28] MEDS: MULTIVITAMIN TAB PO SCH (08:59)
[2022-05-28] MEDS ORDERED: cloNIDine HCL 0.1 MG TAB PO SCH ×2 (09:00→21:00)
[2022-05-28] MEDS ORDERED: LANTUS PER UNIT CHARGE SQ SCH ×2 (09:00→21:00)
[2022-05-28] MEDS ORDERED: BISOPROLOL HYDROCHLOROTHIAZIDE PO SCH (09:00)
[2022-05-28] MEDS: PANTOprazole 40 MG TAB PO SCH (09:00)
[2022-05-28] MEDS: SPIRONOLACTONE 25 MG TAB PO SCH (09:00)
--- NOTE | 2022-05-28 10:01 | Orthopedic Progress Note ---
Date of Service May 28, 2022 Assessment & Plan (1) Neurogenic claudication due to lumbar spinal stenosis: Plan: This time initiate physical therapy monitor his AIDEE operatively discharge home the next few days. Admission and Anticipated Discharge Date Admission Date: May 27, 2022 Subjective Patient's back pain is controlled leg pain markedly improved Physical Exam Physical Exam: Patient is in the chair at the bedside. Is constricted testing. Results & Data Vital Signs (Past 12 Hours) Vital Signs Temp Pulse Pulse Resp BP Pulse Ox O2 Del Method 05/28/22 07:25 37.4 C 85 14 140/60 90 Room Air 05/28/22 03:31 37 C 86 18 127/74 94 Room Air 05/27/22 23:37 37.0 C 83 16 130/61 96 Room Air
[2022-05-28] MEDS: ACETAMINOPHEN 500 MG TAB PO PRN (13:30)
[2022-05-28] MEDS: DOCUSATE SODIUM/SENNA 50/8.6MG TAB PO SCH (20:41)
[2022-05-29] MEDS: ACETAMINOPHEN 500 MG TAB PO PRN (00:14)
[2022-05-29] MEDS: traMADol HCL 50 MG TABLET PO PRN (00:14)
[2022-05-29] MEDS: POLYETHYLENE (MIRALAX) 17 GM PACK PO SCH ×2 (00:14→06:10)
[2022-05-29 06:09] LABS: Hematocrit (blood only) 30.4 % (42.0-52.0); Hemoglobin 10.5 g/dl (14.0-18.0); Mean Corpuscular Hemoglobin 32.1 pg (25.0-34.0); Mean Corpuscular Hgb Conc 34.5 g/dL (32.0-36.0); Mean Platelet Volume 9.4 fL (9.4-12.4); Platelet Count 155 K/uL (130-400); RDW Coefficient of Variation 13.3 % (11.5-14.5); RDW Standard Deviation 45.6 fL (36.4-46.3); Red Blood Count 3.27 M/uL (4.70-6.10); White Blood Count 7.14 K/ul (4.8-10.8)
[2022-05-29 06:28] LABS: BUN Creatinine Ratio 20.5 (10-20); Calcium 8.6 mg/dl (8.6-10.3); Creatinine Clr Calc Pharmacy 131.5 ml/min; Est GFR (African American) 113.7 ml/min; Est GFR (Non-African American) 98.1 ml/min
--- NOTE | 2022-05-29 08:08 | Discharge Summary ---
Date of Service May 29, 2022 Admission HPI Per Admitting Provider This is a 51-year-old male who presents with chronic persistent back and leg pain after failing course of nonoperative care is here for surgical intervention. Discharge Data Consultations 05/27/22 11:16 Consult Hospitalist Routine Procedures Performed Operation Date: 05/27/22 07:45 Actual Procedures p L2-L3 Decompression and Fusion Interbody , Spinal Cord Monitoring(Not Applicable) - Yamil Hull DO Hospital Course (1) Neurogenic claudication due to lumbar spinal stenosis: Patient is a pleasant 51-year-old male with history physical examination and radiographic images consistent with the above-mentioned diagnosis. This reason he was brought to the operating room 05/27/2022 at the above-mentioned procedure performed. This performed by Dr. Hull under general anesthesia. He left the operating room with a AIDEE drain Malloy in place and was transferred to PACU in stable condition. He was then transferred to the orthopedic floor. He is placed on GI and DVT prophylaxis. He is seen by physical therapy for ambulation and gait training. Throughout his hospital course his calves remained supple nontender his dressings remain clean dry and intact 05/29/2022 he met discharge criteria. His discharge instructions were to change his dressing once daily until there is no drainage. There is no drainage to begin to shower. He should not perform any bending lifting or twisting. He should not lift anything heavier than 5 to [address] not [address] until he is evaluated in 2 weeks. He is to be seen in our office in approximately 2 weeks or sooner if he developed any increased pain, drainage from the incision, fevers or chills.
[2022-05-29] MEDS: cloNIDine HCL 0.1 MG TAB PO SCH (08:29)
[2022-05-29] MEDS: FERROUS SULFATE 325 MG TAB PO SCH (08:29)
[2022-05-29] MEDS: BISOPROLOL FUMARATE 5 MG TAB PO SCH (08:29)
[2022-05-29] MEDS: MULTIVITAMIN TAB PO SCH (08:30)
[2022-05-29] MEDS: CYANOCOBALAMIN (B-12) 500 MCG TABLET PO SCH (08:30)
[2022-05-29] MEDS: GABAPENTIN 300 MG CAP PO SCH (08:30)
[2022-05-29] MEDS: minoxidiL 2.5 MG TAB PO SCH (08:30)
[2022-05-29] MEDS: hydroCHLOROthiazide 25 MG TAB PO SCH (08:31)
[2022-05-29] MEDS: ATORVASTATIN 40 MG TAB PO SCH (08:32)
[2022-05-29] MEDS: ASPIRIN 81 MG ECTAB PO SCH (08:32)
[2022-05-29] MEDS: PANTOprazole 40 MG TAB PO SCH (08:32)
[2022-05-29] MEDS: lisinopril 40 MG TAB PO SCH (08:33)
[2022-05-29] MEDS: SPIRONOLACTONE 25 MG TAB PO SCH (08:33)
[2022-05-29] MEDS: hydrALAZINE HCL 25 MG TAB PO SCH (08:34)
[2022-05-29] MEDS: INSULIN ASPART PER UNIT CHARGE SC SCH (08:37)
[2022-05-29] MEDS ORDERED: LANTUS PER UNIT CHARGE SQ SCH (09:00)
--- NOTE | 2022-05-29 10:03 | Hospitalist Progress Note ---
Date of Service May 29, 2022 Assessment & Plan (1) Status post lumbar surgery: Plan: - Pain management, bowel regimen and DVT ppx per the primary team - PT/OT consults, pt is planning on outpatient therapy - Cm to assist with dc planning - Follow am CBC to monitor for acute blood loss - Malloy catheter and AIDEE drain in place Acute blood loss anemia, post-op and likely also dilutional - pre-op Hgb 14.6, current 10.5 - expected, no need for blood transfusion - monitor H&H (2) Diabetes mellitus, type 2: Plan: - insulin dependent -Patient takes Humalog mix 7525, 40 units with breakfast and 80 units with the evening meal, Ozempic on Mondays, , and metformin -ISS with Accu-Cheks ACHS -Continue Humalog standing doses twice daily -Glycemic pharmacy consulted (3) CAD (coronary artery disease): (4) Hypertension: (5) History of heart artery stent: Plan: -Continue baby aspirin, lisinopril, statin therapy, bisoprolol/HCTZ, clonidine, hydralazine -BP is well controlled at 120/77 -Diet and exercise to be encouraged (6) CKD (chronic kidney disease) stage 2, GFR 60-89 ml/min: Plan: -monitor renal function while inpt CODE STATUS: FULL DVT ppx: Lamonte Foy Dispo: Plan to DC home Admission and Anticipated Discharge Date Admission Date: May 27, 2022 Subjective Pt seen in follow up of med consult for s/p spinal surgery Currently sitting up in bed, in NAD Feeling well overall, voices no complaints. No fevers, chills, chest pain, shortness of breath. No abdominal pain, n/v. No BM yet and difficulty w/ sleeping while in the hospital, otherwise feels well and excited about poss. DC today Review of Systems Review of Systems: All systems reviewed & are unremarkable except as noted in Subjective Physical Exam Physical Exam: General: awake, alert, no apparent distress, + obese with BMI 32.9 Head: Normocephalic, atraumatic ENT: PERRL, EOMI Chest: Clear to auscultation, no adventitious breath sounds Cardiac: Regular rate and rhythm, no murmur, no JVD Abdominal: NABS x 4 quadrants, soft, nondistended, nontender to palpation Back: dressing c/d/i, +AIDEE drain w/ serosanguineous fluid Extremities: Normal inspection, no peripheral edema or erythema Psych: Normal mood and affect Neuro: AAO x 3, speech fluent, moves extremities Results & Data Results & Data Vital Signs (Past 12 Hours) Vital Signs Temp Pulse Resp BP Pulse Ox O2 Del Method 05/29/22 08:15 37.2 C 86 16 138/70 96 Room Air Laboratory Results 05/29/22 05/29/22 05/29/22 Range/Units 08:14 05:36 05:36 WBC 7.14 (4.8-10.8) K/ul RBC 3.27 L (4.70-6.10) M/uL Hgb 10.5 L (14.0-18.0) g/dl Hct 30.4 L (42.0-52.0) % MCV 93.0 (80.0-100.0) fL MCH 32.1 (25.0-34.0) pg MCHC 34.5 (32.0-36.0) g/dL RDW Std Deviation 45.6 (36.4-46.3) fL RDW Coeff of Marybel 13.3 (11.5-14.5) % Plt Count 155 (130-400) K/uL MPV 9.4 (9.4-12.4) fL Sodium 134 L (136-145) mmol/L Potassium 4.0 (3.5-5.1) mmol/L Chloride 102 (98-107) mmol/L Carbon Dioxide 27 (21-32) mmol/L Anion Gap 5 (3-11) BUN 18 (6-23) mg/dl Creatinine 0.88 (0.6-1.4) mg/dl Est Cr Clr Drug Dosing 131.5 ml/min Est GFR ( Amer) 113.7 ml/min Est GFR (Non-Af Amer) 98.1 ml/min BUN/Creatinine Ratio 20.5 H (10-20) Glucose 196 H (70-99(Fasting)) mg/dl POC Glucose 204 H (70-99) mg/dl Calcium 8.6 (8.6-10.3) mg/dl 05/28/22 05/28/22 05/28/22 Range/Units 20:38 17:07 11:56 WBC (4.8-10.8) K/ul RBC (4.70-6.10) M/uL Hgb (14.0-18.0) g/dl Hct (42.0-52.0) % MCV (80.0-100.0) fL MCH (25.0-34.0) pg MCHC (32.0-36.0) g/dL RDW Std Deviation (36.4-46.3) fL RDW Coeff of Marybel (11.5-14.5) % Plt Count (130-400) K/uL MPV (9.4-12.4) fL Sodium (136-145) mmol/L Potassium (3.5-5.1) mmol/L Chloride (98-107) mmol/L Carbon Dioxide (21-32) mmol/L Anion Gap (3-11) BUN (6-23) mg/dl Creatinine (0.6-1.4) mg/dl Est Cr Clr Drug Dosing ml/min Est GFR ( Amer) ml/min Est GFR (Non-Af Amer) ml/min BUN/Creatinine Ratio (10-20) Glucose (70-99(Fasting)) mg/dl POC Glucose 192 H 201 H 167 H (70-99) mg/dl Calcium (8.6-10.3) mg/dl Medications Administered Current Inpatient Medications Acetaminophen (Acetaminophen 500 Mg Tab) 1,000 mg PO Q8H PRN PRN Reason: MILD Pain Scale 1,2,3 & Pre PT Stop: 06/26/22 11:15 Last Admin: 05/29/22 00:14 Dose: 1,000 mg Al Hydrox/Mg Hydrox/Simethicone (Aluminum/Magnesium Susp 30 Ml Udc) 30 ml PO Q6H PRN PRN Reason: Dyspepsia Stop: 06/26/22 11:15 Aspirin (Aspirin 81 Mg Ectab) 81 mg PO [facility] Stop: 06/27/22 08:59 Last Admin: 05/29/22 08:32 Dose: 81 mg Atorvastatin Calcium (Atorvastatin 40 Mg Tab) 40 mg PO [facility] Stop: 06/27/22 08:59 Last Admin: 05/29/22 08:32 Dose: 40 mg Bisacodyl (Bisacodyl 10 Mg Supp) 10 mg TN DAILY PRN PRN Reason: Constipation Stop: 06/26/22 11:15 Bisoprolol Fumarate (Bisoprolol Fumarate 5 Mg Tab) 10 mg PO DAILY [facility] Stop: 06/27/22 08:59 Last Admin: 05/29/22 08:29 Dose: 10 mg Clonidine HCl (Clonidine Hcl 0.1 Mg Tab) 0.1 mg PO QAM [facility] Stop: 06/27/22 08:59 Last Admin: 05/29/22 08:29 Dose: 0.1 mg Clonidine HCl (Clonidine Hcl 0.1 Mg Tab) 0.2 mg PO QPM [facility] Stop: 06/27/22 20:59 Last Admin: 05/28/22 20:41 Dose: 0.2 mg Cyanocobalamin (Cyanocobalamin (B-12) 500 Mcg Tablet) 1,000 mcg PO BID [facility] Stop: 06/26/22 20:59 Last Admin: 05/29/22 08:30 Dose: 1,000 mcg Dextrose (Dextrose 50% 50 Ml Syringe) 25 - 50 ml IV UD PRN; Protocol PRN Reason: Hypoglycemia Protocol Stop: 06/26/22 12:14 Diphenhydramine HCl (Diphenhydramine Capsule 25 Mg Cap) 25 mg PO Q6H PRN PRN Reason: Allergic Rhinitis/Insomnia Stop: 06/26/22 11:15 Famotidine (Famotidine 20 Mg Tab) 20 mg PO Q12H PRN PRN Reason: Dyspepsia Stop: 06/26/22 11:15 Ferrous Sulfate (Ferrous Sulfate 325 Mg Tab) 325 mg PO BID [facility] Stop: 06/26/22 20:59 Last Admin: 05/29/22 08:29 Dose: 325 mg Gabapentin (Gabapentin 300 Mg Cap) 300 mg PO TID [facility] Stop: 06/26/22 13:59 Last Admin: 05/29/22 08:30 Dose: 300 mg Glucagon (Glucagon For Inj 1 Mg Vial) 1 mg IM UD PRN; Protocol PRN Reason: Hypoglycemia Protocol Stop: 06/26/22 12:14 Glucose (Glucose 40% Gel 15 Gm Tube) 15 - 30 gm PO UD PRN; Protocol PRN Reason: Hypoglycemia Protocol Stop: 06/26/22 12:14 Glucose (Glucose 10 Tab/Tube) 4 - 8 tab PO UD PRN; Protocol PRN Reason: Hypoglycemia Protocol Stop: 06/26/22 12:14 Hydralazine HCl (Hydralazine Hcl 25 Mg Tab) 25 mg PO BID [facility] Stop: 06/26/22 20:59 Last Admin: 05/29/22 08:34 Dose: 25 mg Hydrochlorothiazide (Hydrochlorothiazide 25 Mg Tab) 6.25 mg PO QAM [facility] Stop: 06/27/22 08:59 Last Admin: 05/29/22 08:31 Dose: 6.25 mg Hydromorphone HCl (Hydromorphone Inj 0.5 Mg/0.5 Ml Syr) 0.5 mg IV Q3H PRN PRN Reason: MODERATE Pain (Scale 4,5,6) & Pre PT Stop: 06/10/22 11:15 Last Admin: 05/27/22 12:19 Dose: 0.5 mg Hydromorphone HCl (Hydromorphone Inj 1 Mg/Ml Syringe) 1 mg IV Q3H PRN PRN Reason: SEVERE Pain (Scale 7,8,9,10) Stop: 06/10/22 11:15 Hydroxyzine HCl (Hydroxyzine Hcl 25 Mg Tab) 25 mg PO Q8H PRN PRN Reason: Anxiety Stop: 06/26/22 11:15 Promethazine HCl 12.5 mg/ (Sodium Chloride) 50.5 mls @ 202 mls/hr IV Q6H PRN PRN Reason: Nausea &/or Vomiting Stop: 06/26/22 11:15 Influenza Virus Vaccine Quadrival (Do Not Administer Flu Vaccine) 1 each N/A PRN PRN PRN Reason: Notification Stop: 06/26/22 11:15 Insulin Aspart (Insulin Aspart Per Unit Charge) 0 units SC ACHS [facility] Stop: 06/26/22 12:14 Last Admin: 05/29/22 08:37 Dose: 18 units Insulin Glargine (Lantus Per Unit Charge) 0 units SQ HS [facility]; Protocol Stop: 06/27/22 20:59 Last Admin: 05/28/22 21:37 Dose: 50 units Insulin Glargine (Lantus Per Unit Charge) 45 units SQ DAILY [facility]; Protocol Stop: 06/28/22 08:59 Last Admin: 05/29/22 08:38 Dose: 45 units Lisinopril ([facility]opril 40 Mg Tab) [facility] [place] Stop: 06/27/22 08:59 Last Admin: 05/29/22 08:33 Dose: 40 mg Lorazepam (Lorazepam 0.5 Mg Tab) 0.5 mg PO Q8H PRN PRN Reason: Sedation/Anxiety Stop: 06/26/22 11:15 Lorazepam (Lorazepam 2 Mg/1 Ml Vial) 0.5 mg IV Q8H PRN PRN Reason: Sedation/Anxiety Stop: 06/26/22 11:15 Magnesium Hydroxide (Magnesium Hydroxide Susp 30 Ml Udc) 30 ml PO Q24H PRN PRN Reason: Constipation Stop: 06/26/22 11:15 Metoclopramide HCl (Metoclopramide Hcl Inj 5 Mg/Ml 2 Ml Vial) 10 mg IV Q6H PRN PRN Reason: Nausea &/or Vomiting Stop: 06/26/22 11:15 Minoxidil (Minoxidil 2.5 Mg Tab) 5 mg PO BID [facility] Stop: 06/26/22 20:59 Last Admin: 05/29/22 08:30 Dose: 5 mg Miscellaneous (Carbohydrates For Hypoglycemia ) 15 - 30 gm PO UD PRN PRN Reason: Hypoglycemia Treatment Stop: 06/26/22 12:14 Miscellaneous (Carbohydrates For Hypoglycemia ) 15 - 30 gm PO UD PRN PRN Reason: Hypoglycemia Protocol Stop: 06/26/22 12:23 Miscellaneous Information (Pharmacy Glycemic Mgmt Consult) 1 each N/A UD PRN PRN Reason: Consult Stop: 06/26/22 11:15 Multivitamins (Multivitamin Tab) 1 tab PO QAM [facility] Stop: 06/27/22 08:59 Last Admin: 05/29/22 08:30 Dose: 1 tab Naloxone HCl (Naloxone Hcl 0.4 Mg/1 Ml Vial/Carp) 0.1 mg IV Q5M PRN PRN Reason: Oversedation/Resp depression Stop: 06/26/22 11:15 Ondansetron HCl (Ondansetron Inj 2 Mg/Ml 2 Ml Vial) 4 mg IV Q6H PRN PRN Reason: Nausea &/or Vomiting Stop: 06/26/22 11:15 Ondansetron HCl (Ondansetron 4 Mg Od Tab) 4 mg PO Q6H PRN PRN Reason: Nausea Stop: 06/26/22 11:15 Oxycodone HCl (Oxycodone Hcl Ir 5 Mg Tab (Immediate Release)) 5 - 10 mg PO Q4H PRN PRN Reason: Pain & Pre PT Stop: 06/10/22 11:15 Last Admin: 05/28/22 20:39 Dose: 10 mg Pantoprazole Sodium (Pantoprazole 40 Mg Tab) 40 mg PO QAM [facility] Stop: 06/27/22 08:59 Last Admin: 05/29/22 08:32 Dose: 40 mg Pneumococcal Polyvalent Vaccine (Do Not Administer Pneumococcal Vaccine) 1 each N/A PRN PRN PRN Reason: Notification Stop: 06/26/22 11:15 Polyethylene Glycol (Polyethylene (Miralax) 17 Gm Pack) 17 gm PO Q6 [facility] Stop: 06/27/22 05:59 Last Admin: 05/29/22 06:10 Dose: 17 gm Senna/Docusate Sodium (Docusate Sodium/Senna 50/8.6mg Tab) 2 tab PO HS [facility] Stop: 06/26/22 20:59 Last Admin: 05/28/22 20:41 Dose: 2 tab Sodium Biphosphate/Sodium Phosphate (Sod Phosphate/Sod Biphosphate Enema 132 Ml Btl) 132 ml TN ONE PRN PRN Reason: Constipation Stop: 06/26/22 11:15 Spironolactone (Spironolactone 25 Mg Tab) 25 mg PO QAM [facility] Stop: 06/27/22 08:59 Last Admin: 05/29/22 08:33 Dose: 25 mg Tramadol HCl (Tramadol Hcl 50 Mg Tablet) 50 - 100 mg PO Q4H PRN PRN Reason: Moderate-Severe pain & Pre PT Stop: 06/26/22 11:15 Last Admin: 05/29/22 00:14 Dose: 50 mg
[2022-05-29] MEDS: oxyCODONE HCL IR 5 MG TAB (IMMEDIATE RELEASE) PO PRN (10:27)
== END 2022-05-29 13:45 | disposition home or self-care (01) | DRG 454 ==
LOC: ASU 05:53 → 3E 09:47